=== PATIENT | female | born 1950 | race Caucasian/White ===

== ENCOUNTER 2022-06-21 11:55 | Emergency (ER) | payer MEDICARE, BC, SELFPAY ==
[2022-06-21 12:08] VITALS: BP 156/87; PULSE 72; RESP 22; TEMP 36; O2SAT 98; BMI 31.0
--- NOTE | 2022-06-21 12:35 | CRLHL7_ITS ---
For Patients: As a result of the Century Cures Act, medical imaging exams and procedure reports are released immediately into your electronic medical record. You may view this report before your referring provider. If you have questions, please contact your health care provider. Indication : Dyspnea Technique: Single-view study June 21, 2022 1:07 p.m. Comparison: July 01, 2020 Findings: Normal cardiac and mediastinal contour. Lungs show no focal consolidation, infiltrate or mass. No pleural effusion or pneumothorax. No acute osseous finding Impression: No evidence of active pulmonary disease Dictated by Michael Reyes MD @ 06/21/2022 1:20:08 PM (Electronically Signed)
--- NOTE | 2022-06-21 12:37 | ED.WEAKNESS ---
HPI - Weakness General Chief complaint: Weakness Stated complaint: weakness/chest pressure Time Seen by Provider: 06/21/22 12:12 History of Present Illness HPI Narrative: 72-year-old woman presenting with spouse to the emergency department with concern of weakness. She has also been having sense of chest pressure. Underlying history of COPD and sleep apnea. She apparently is not receiving treatment for COPD she says but does intermittently use her CPAP. She has not had any fever. Was recently diagnosed with a urinary tract infection, I believe 2 days ago, and was initiated on nitrofurantoin. She notes that for a couple of hours after taking this medication she feels more weak a sense of chest pressure a little lightheaded. She also has been having low sharp pains in her right upper chest but this is not necessarily unusual; chronic. She does have leg pain bilaterally which she attributes to back problems but a little bit more swelling typically in her left leg due to rodding. Is not describing any rash. Maybe mildly short of breath when up and about, better when she lays down. Mild sense of nausea, again may be associated with medication she thinks. She just noticed that she has a little bit of mid right abdominal discomfort. She is not constipated and no diarrhea noted. She no longer has any dysuria urgency or frequency. She does endorse ?high anxiety? as I observe her intermittently with mildly labored breathing when lying in the bed. Related Data Allergies Allergy/AdvReac Type Severity Reaction Status Date / Time Sulfa (Sulfonamide Allergy Verified 06/21/22 12:06 Antibiotics) Review of Systems Status of ROS: Reports: 10 or more systems reviewed and unremarkable except as noted in History and below [facility] Social History Smoking Status: Never smoker Do you use any of these nicotine containing products: None Second hand tobacco smoke exposure: No How often do you have a drink containing alcohol: monthly or less How many standard drinks containing alcohol do you have on a typical day: 1 or 2 How often do you have six or more drinks on one occasion: Never AUDIT-C Alcohol total score: 1 Non-prescribed substance use: denies use service: No Exam Narrative: Exam Narrative: Pleasant. NAD. Does appear mildly anxious. Intermittently mildly labored in her breathing. Cranial nerves 2-12 intact. Oropharynx moist Lungs are clear Cardiovascular was regular rate and rhythm. No murmur There is no pain to palpation over the chest though the right upper back, rhomboid area, is tender. Moving all extremities without difficulty. Well perfused peripherally. Mild dependent edema bilaterally. Negative Homans. Abdomen is soft overweight and very mildly tender in the right mid-abdomen. No masses appreciated. Const: Vital Signs, click to edit/add: Vital Signs - 24 hr 06/21/22 12:08 06/21/22 12:48 06/21/22 15:18 Temperature 96.8 F L Pulse Rate [Pulse Oximeter] 72 70 Respiratory Rate 22 18 Blood Pressure [Ri t Upper Arm] 156/87 H 149/77 H Pulse Oximetry 98 99 Oxygen Delivery Me thod Room Air Documenting provider has reviewed patient's vital signs: yes Course Vital Signs Vital signs: Initial Vital Signs Temperature 96.8 F L 06/21/22 12:08 Temperature Source Temporal Artery Scan 06/21/22 12:08 Pulse Rate 72 06/21/22 12:08 Pulse Rhythm 06/21/22 12:08 Respiratory Rate 22 06/21/22 12:08 Blood Pressure 156/87 H 06/21/22 12:08 Blood Pressure Mean 110 06/21/22 12:08 Pulse Oximetry 98 06/21/22 12:08 Oxygen Delivery Method 06/21/22 12:08 Vital Signs Temperature 96.8 F L 06/21/22 12:08 Pulse Rate 72 06/21/22 12:08 Respiratory Rate 22 06/21/22 12:08 Blood Pressure 156/87 H 06/21/22 12:08 Pulse Oximetry 98 06/21/22 12:08 Oxygen Delivery Method 06/21/22 12:08 Temperature 96.8 F L 06/21/22 12:08 Pulse Rate 70 06/21/22 15:18 Respiratory Rate 18 06/21/22 15:18 Blood Pressure 149/77 H 06/21/22 15:18 Pulse Oximetry 99 06/21/22 12:48 Oxygen Delivery Method 06/21/22 12:08 MDM - Weakness MDM Narrative Medical decision making narrative: Given timing and temporary nature of these primary symptoms of complaint, I do suspect may be more of a medication intolerance. She would like further evaluation ?just to be safe?. I do not think this is unreasonable. Urinalysis still with 1+ leukocyte esterase. D-dimer normal and COVID negative Intermittent twinges of upper right side chest discomfort I think do not seem to be cardiac; not even palpitations are described. I think could be related to chest wall pain particularly from the back/rhomboids I do think anxiety is exacerbating symptoms as well Medical Records Attestation: I reviewed the patient's medical records. Lab Data Attestation: I reviewed the patient's lab results. Labs: Lab Results 06/21/22 06/21/22 06/21/22 Range/Units 12:36 12:36 12:48 WBC 7.93 (4.50-11.00) K/uL RBC 4.99 (4.00-5.20) m/uL Hgb 15.2 (12.0-16.0) gm/dL Hct 44.5 (33.0-51.0) % MCV 89 (80-100) fL MCH 31 (26-34) pg MCHC 34 (32-36) gm/dL RDW Coeff of Dmitriy 11.8 (11.5-15.5) % Plt Count 243 (140-440) K/uL Neut % (Auto) 73.9 H (42.0-72.0) % Lymph % (Auto) 16.3 L (20-44) % [place] % (Auto) 6.9 (0.0-11.0) % Eos % (Auto) 2.3 (0.0-7.0) % Baso % (Auto) 0.5 (0.0-3.0) % Neut # (Auto) 5.90 (1.7-7.0) K/uL Lymph # (Auto) 1.30 (0.90-2.90) K/uL [place] # (Auto) 0.50 (0.00-0.90) K/UL Eos # (Auto) 0.18 (0.00-0.50) K/uL Baso # (Auto) 0.04 (0.00-0.30) K/uL Abs Immat Gran (auto) 0.01 (0.00-0.30) K/uL D-Dimer Quant (PE/DVT) (0.00-0.50) ug/ml VBG pH (7.32-7.43) VBG pCO2 (40-50) mmHG VBG pO2 (25-47) mmHG VBG HCO3 (21-28) mmol/L Sodium (135-149) mmol/L Potassium (3.6-5.1) mmol/L Chloride (96-114) mmol/L Carbon Dioxide (20-32) mmol/L BUN (7-30) mg/dL Creatinine (0.5-1.5) mg/dL Estimated Creat Clear Estimated GFR ml/min Glucose (60-115) mg/dL Calcium (8.4-10.6) mg/dL Total Bilirubin (0.1-1.5) mg/dL Direct Bilirubin (0.0-0.5) mg/dL AST (12-35) U/L ALT (4-35) U/L Alkaline Phosphatase (40-150) U/L Troponin I (0.01-0.04) ng/mL C-Reactive Protein (0.5-1.0) mg/dL Total Protein (6.0-8.3) g/dL Albumin (3.3-5.0) g/dL Urine Color Yellow (Yellow) Urine Appearance Clear (Clear) Urine pH 7.0 (5.0-8.5) Ur Specific [place] 1.010 (1.000-1.030) Urine Protein Negative (Negative) Urine Glucose (UA) Negative (Negative) Urine Ketones Negative (Negative) Urine Blood Negative (Negative) Urine Nitrite Negative (Negative) Urine Bilirubin Negative (Negative) Urine Urobilinogen 0.2 (0.2-1.0) Ur Leukocyte Esterase 1+ A (Negative) Urine RBC 0-2 (0-2) Urine WBC 0-2 (0-5) Ur Squamous Epith Cells Few (None-Few) Amorphous Sediment Few A (None) Urine Bacteria Few A (None) SARS-CoV-2 (PCR) Negative SARS-CoV-2 (Negative) 06/21/22 06/21/22 06/21/22 Range/Units 12:48 12:48 12:48 WBC (4.50-11.00) K/uL RBC (4.00-5.20) m/uL Hgb (12.0-16.0) gm/dL Hct (33.0-51.0) % MCV (80-100) fL MCH (26-34) pg MCHC (32-36) gm/dL RDW Coeff of Dmitriy (11.5-15.5) % Plt Count (140-440) K/uL Neut % (Auto) (42.0-72.0) % Lymph % (Auto) (20-44) % [place] % (Auto) (0.0-11.0) % Eos % (Auto) (0.0-7.0) % Baso % (Auto) (0.0-3.0) % Neut # (Auto) (1.7-7.0) K/uL Lymph # (Auto) (0.90-2.90) K/uL [place] # (Auto) (0.00-0.90) K/UL Eos # (Auto) (0.00-0.50) K/uL Baso # (Auto) (0.00-0.30) K/uL Abs Immat Gran (auto) (0.00-0.30) K/uL D-Dimer Quant (PE/DVT) 0.42 (0.00-0.50) ug/ml VBG pH (7.32-7.43) VBG pCO2 (40-50) mmHG VBG pO2 (25-47) mmHG VBG HCO3 (21-28) mmol/L Sodium 139 (135-149) mmol/L Potassium 3.9 (3.6-5.1) mmol/L Chloride 109 (96-114) mmol/L Carbon Dioxide 20 (20-32) mmol/L BUN 21 (7-30) mg/dL Creatinine 0.6 (0.5-1.5) mg/dL Estimated Creat Clear 43.30 Estimated GFR 97 ml/min Glucose 96 (60-115) mg/dL Calcium 9.3 (8.4-10.6) mg/dL Total Bilirubin 0.6 (0.1-1.5) mg/dL Direct Bilirubin 0.4 (0.0-0.5) mg/dL AST 23 (12-35) U/L ALT 17 (4-35) U/L Alkaline Phosphatase 95 (40-150) U/L Troponin I < 0.01 L (0.01-0.04) ng/mL C-Reactive Protein < 0.5 L (0.5-1.0) mg/dL Total Protein 6.4 (6.0-8.3) g/dL Albumin 4.3 (3.3-5.0) g/dL Urine Color (Yellow) Urine Appearance (Clear) Urine pH (5.0-8.5) Ur Specific [place] (1.000-1.030) Urine Protein (Negative) Urine Glucose (UA) (Negative) Urine Ketones (Negative) Urine Blood (Negative) Urine Nitrite (Negative) Urine Bilirubin (Negative) Urine Urobilinogen (0.2-1.0) Ur Leukocyte Esterase (Negative) Urine RBC (0-2) Urine WBC (0-5) Ur Squamous Epith Cells (None-Few) Amorphous Sediment (None) Urine Bacteria (None) SARS-CoV-2 (PCR) (Negative) 06/21/22 Range/Units 12:48 WBC (4.50-11.00) K/uL RBC (4.00-5.20) m/uL Hgb (12.0-16.0) gm/dL Hct (33.0-51.0) % MCV (80-100) fL MCH (26-34) pg MCHC (32-36) gm/dL RDW Coeff of Dmitriy (11.5-15.5) % Plt Count (140-440) K/uL Neut % (Auto) (42.0-72.0) % Lymph % (Auto) (20-44) % [place] % (Auto) (0.0-11.0) % Eos % (Auto) (0.0-7.0) % Baso % (Auto) (0.0-3.0) % Neut # (Auto) (1.7-7.0) K/uL Lymph # (Auto) (0.90-2.90) K/uL [place] # (Auto) (0.00-0.90) K/UL Eos # (Auto) (0.00-0.50) K/uL Baso # (Auto) (0.00-0.30) K/uL Abs Immat Gran (auto) (0.00-0.30) K/uL D-Dimer Quant (PE/DVT) (0.00-0.50) ug/ml VBG pH 7.400 (7.32-7.43) VBG pCO2 39 L (40-50) mmHG VBG pO2 60.9 H (25-47) mmHG VBG HCO3 24 (21-28) mmol/L Sodium (135-149) mmol/L Potassium (3.6-5.1) mmol/L Chloride (96-114) mmol/L Carbon Dioxide (20-32) mmol/L BUN (7-30) mg/dL Creatinine (0.5-1.5) mg/dL Estimated Creat Clear Estimated GFR ml/min Glucose (60-115) mg/dL Calcium (8.4-10.6) mg/dL Total Bilirubin (0.1-1.5) mg/dL Direct Bilirubin (0.0-0.5) mg/dL AST (12-35) U/L ALT (4-35) U/L Alkaline Phosphatase (40-150) U/L Troponin I (0.01-0.04) ng/mL C-Reactive Protein (0.5-1.0) mg/dL Total Protein (6.0-8.3) g/dL Albumin (3.3-5.0) g/dL Urine Color (Yellow) Urine Appearance (Clear) Urine pH (5.0-8.5) Ur Specific [place] (1.000-1.030) Urine Protein (Negative) Urine Glucose (UA) (Negative) Urine Ketones (Negative) Urine Blood (Negative) Urine Nitrite (Negative) Urine Bilirubin (Negative) Urine Urobilinogen (0.2-1.0) Ur Leukocyte Esterase (Negative) Urine RBC (0-2) Urine WBC (0-5) Ur Squamous Epith Cells (None-Few) Amorphous Sediment (None) Urine Bacteria (None) SARS-CoV-2 (PCR) (Negative) Discharge Plan Discharge Clinical Impression: Urinary tract infection, Antibiotic drug intolerance, Rhomboid muscle pain Patient Disposition: Home w/ Parent or Adult Condition: Stable Additional Instructions: Yes. Do focus on hydration as discussed. Try to do these exercises for your upper back going through them once or twice daily. They might be helpful if you can do them for a longer period of time. Return for persistent chest pain particularly that accompanied with shortness of breath or nausea. Return also if your lightheadedness is getting more persistent. Urine culture result is still pending. At this point stop the Nitrofurantoin and finish with 4-5 more days of cephalexin. Follow Up/Referrals: Raleigh Moya MD [Primary Care Provider] - Stand Alone Forms: [employer] Info Instructions
[2022-06-21 12:48] VITALS: O2SAT 99
[2022-06-21 12:58] LABS: Appearance Urine Clear (Clear); Bilirubin Urine Negative (Negative); Blood Urine Negative (Negative); Color Urine Yellow (Yellow); Glucose Urine Negative (Negative); Ketones Urine Negative (Negative); Leukocyte Esterase Urine 1+ (Negative); Nitrite Urine Negative (Negative); Protein Urine Negative (Negative); Urobilinogen Urine 0.2 (0.2-1.0)
[2022-06-21 13:00] LABS: Basophils Absolute Auto 0.04 K/uL (0.00-0.30); Basophils Percent Auto 0.5 % (0.0-3.0); Eosinophils Absolute Auto 0.18 K/uL (0.00-0.50); Eosinophils Percent Auto 2.3 % (0.0-7.0); Hematocrit 44.5 % (33.0-51.0); Hemoglobin* 15.2 gm/dL (12.0-16.0); Immature Granulocytes Abs Auto 0.01 K/uL (0.00-0.30); Lymphocytes Percent Auto 16.3 % (20-44); Mean Corpuscular HGB Conc 34 gm/dL (32-36); Mean Corpuscular Hemoglobin 31 pg (26-34); Mean Corpuscular Volume 89 fL (80-100); Monocytes Percent Auto 6.9 % (0.0-11.0); Neutrophils Percent Auto 73.9 % (42.0-72.0); Platelet Count* 243 K/uL (140-440); RDW Coefficient of Variation % 11.8 % (11.5-15.5); Red Blood Count 4.99 m/uL (4.00-5.20); White Blood Count* 7.93 K/uL (4.50-11.00)
[2022-06-21 13:03] LABS: Slide Review Reflex No
[2022-06-21 13:30] LABS: D Dimer Quantitative* 0.42 ug/ml (0.00-0.50)
[2022-06-21 13:31] LABS: Chloride* 109 mmol/L (96-114); Potassium* 3.9 mmol/L (3.6-5.1); Sodium* 139 mmol/L (135-149)
[2022-06-21 13:32] LABS: Albumin* 4.3 g/dL (3.3-5.0)
[2022-06-21 13:33] LABS: Creatinine* 0.6 mg/dL (0.5-1.5); Estimated Glomerular Filt Rate 97 ml/min
[2022-06-21 13:34] LABS: Blood Urea Nitrogen* 21 mg/dL (7-30); Calcium* 9.3 mg/dL (8.4-10.6); Carbon Dioxide* 20 mmol/L (20-32); Glucose* 96 mg/dL (60-115)
[2022-06-21 13:35] LABS: Alanine Aminotransferase* 17 U/L (4-35); Alkaline Phosphatase* 95 U/L (40-150); Aspartate Amino Transferase* 23 U/L (12-35); Bilirubin Direct* 0.4 mg/dL (0.0-0.5); Bilirubin Total* 0.6 mg/dL (0.1-1.5); Total Protein* 6.4 g/dL (6.0-8.3)
[2022-06-21 13:38] LABS: C Reactive Protein* < 0.5 mg/dL (0.5-1.0)
[2022-06-21 13:42] LABS: HCO3 VBG 24 mmol/L (21-28); PCO2 VBG 39 mmHG (40-50); PO2 VBG 60.9 mmHG (25-47)
[2022-06-21 13:50] LABS: Troponin I* < 0.01 ng/mL (0.01-0.04)
[2022-06-21 14:12] LABS: RBC Urine 0-2 (0-2); WBC Urine 0-2 (0-5)
[2022-06-21 14:13] LABS: Amorphous Sediment Urine Few; Bacteria Urine Few; Squamous Epithelial Cell Urine Few (None-Few)
[2022-06-21 14:44] LABS: SARS PCR* Negative SARS-CoV-2 (Negative)
[2022-06-21 15:18] VITALS: BP 149/77; PULSE 70; RESP 18
== END 2022-06-21 15:18 | disposition home or self-care (01) ==
PROVIDERS: Emergency Provider Family Medicine; PCP Family Medicine
DX: N39.0 Urinary tract infection, site not specified (principal); S46.911A Strain of unspecified muscle, fascia and tendon at shoulder and upper arm level, right arm, initial encounter; Z88.1 Allergy status to other antibiotic agents
CPT/HCPCS: 36415; 71045; 80048; 80076; 81001; 82803; 84484; 85025; 85379; 86140; 87086; 87635; 94761; 96374; 96375; 99284; J2060; J2405; J7030

== ENCOUNTER 2022-06-21 20:50 | Emergency (ER) | payer MEDICARE, BC, SELFPAY ==
[2022-06-21 21:29] VITALS: BP 150/87; PULSE 76; TEMP 36.1; O2SAT 99
--- NOTE | 2022-06-21 21:49 | ED_ITS ---
HPI - Nausea/Vomiting/Diarrhea General Chief complaint: Nausea/Vomiting Stated complaint: Trouble breathing, vomiting and nausea Time Seen by Provider: 06/21/22 21:04 History of Present Illness HPI Narrative: 72-year-old woman presented returning to the emergency department after I saw h er earlier in the day. About 3 hours after taking a pill of Keflex for presumed urinary tract infection there she had initiated treatment on nitrofurantoin 2 days ago, started vomiting and having diarrhea. describes her hyperventilating/breathing heavily, bent over the toilet. Coming out both ends. He was wondering what ?what the is hell going on?. Sounded like a pretty dramatic seen. Around this time I believe Ms. Villegas callled to the emergency department. I spoke to her at this time. She was concerned about dehydration. Seemed very upset I ask her if she was having some cramping in tingling and she responds by saying her arms were hurting and everything is hurting. She is not describing significant abdominal pain. No fever. She does have chronic back pain in that apparently has been exacerbated as well. Related Data Allergies Allergy/AdvReac Type Severity Reaction Status Date / Time Sulfa (Sulfonamide Allergy Verified 06/21/22 12:06 Antibiotics) Cephalexin Allergy Unknown Uncoded 06/21/22 21:41 Review of Systems Status of ROS: Reports: 10 or more systems reviewed and unremarkable except as noted in History and below [facility] Medical History Anxiety and depression Surgical History History of back surgery History of colonoscopy History of hysterectomy History of lumbar laminectomy History of reduction mammoplasty Status post bilateral breast reduction Status post hysterectomy Social History Smoking Status: Never smoker Do you use any of these nicotine containing products: None Second hand tobacco smoke exposure: No How often do you have a drink containing alcohol: monthly or less How many standard drinks containing alcohol do you have on a typical day: 1 or 2 How often do you have six or more drinks on one occasion: Never AUDIT-C Alcohol total score: 1 Non-prescribed substance use: denies use service: No Exam Narrative: Exam Narrative: Breathless, anxious, sticky mouth Const: Vital Signs, click to edit/add: Vital Signs - 24 hr 06/21/22 21:29 06/21/22 23:30 06/21/22 23:00 Temperature 97.0 F L Pulse Rate [Right Pulse Oximeter] 76 78 82 Respiratory Rate 16 16 Blood Pressure [Le ft Upper Arm] 150/87 H 141/81 H 138/73 Pulse Oximetry 99 96 97 Oxygen Delivery Me thod Room Air Room Air Room Air 06/21/22 22:30 06/21/22 22:00 06/22/22 00:22 Temperature Pulse Rate [Right Pulse Oximeter] 86 78 98 Respiratory Rate 16 16 18 Blood Pressure [Le ft Upper Arm] 146/78 H 132/77 142/82 H Pulse Oximetry 98 97 Oxygen Delivery Me thod Room Air Room Air Documenting provider has reviewed patient's vital signs: yes Course Course Hospital Course: Established IV. Given IV fluids. Lorazepam and Zofran. Reevaluation(s) Reevaluation #1: On reassessment is much more calm and comfortable. Relaxed frankly. Vital Signs Vital signs: Initial Vital Signs Temperature 97.0 F L 06/21/22 21:29 Temperature Source Temporal Artery Scan 06/21/22 21:29 Pulse Rate 76 06/21/22 21:29 Pulse Rhythm 06/21/22 21:29 Blood Pressure 150/87 H 06/21/22 21:29 Blood Pressure Mean 108 06/21/22 21:29 Blood Pressure Position Semi-Fowlers 06/21/22 21:29 Pulse Oximetry 99 06/21/22 21:29 Oxygen Delivery Method 06/21/22 21:29 Vital Signs Temperature 97.0 F L 06/21/22 21:29 Pulse Rate 76 06/21/22 21:29 Blood Pressure 150/87 H 06/21/22 21:29 Pulse Oximetry 99 06/21/22 21:29 Oxygen Delivery Method 06/21/22 21:29 Temperature 97.0 F L 06/21/22 21:29 Pulse Rate 98 06/22/22 00:22 Respiratory Rate 18 06/22/22 00:22 Blood Pressure 142/82 H 06/22/22 00:22 Pulse Oximetry 96 06/21/22 23:30 Oxygen Delivery Method 06/21/22 23:30 MDM - Nausea/Vomiting/Diarrhea MDM Narrative Medical decision making narrative: Certainly possible is intolerant of cephalexin as well. Was negative for COVID earlier today. Did not repeat labs. I do think that a panic attack complicated this situation. Medical Records Attestation: I reviewed the patient's medical records. Discharge Plan Discharge Clinical Impression: Vomiting and diarrhea, Panic attack, Dehydration Patient Disposition: Home w/ Parent or Adult Condition: Improved Additional Instructions: Gentle advance of diet. Focus on hydration. Diarrhea might be helped with loperamide if necessary. Maybe it is better at this point just to not take any antibiotic. Urine culture results are still pending. If you start to have more symptoms in this regard I would follow up and get re-evaluated. Michelle from [facility]. Follow Up/Referrals: Raleigh Moya MD [Primary Care Provider] - Stand Alone Forms: [employer] Info Instructions
[2022-06-21 22:00] VITALS: BP 132/77; PULSE 78; RESP 16; O2SAT 97
[2022-06-21] MEDS: ONDANSETRON 2 MG/ML inj 4 MG IVP (22:13)
[2022-06-21] MEDS: LORazepam 2 MG/ML inj 0.5 MG IVP (22:13)
[2022-06-21] MEDS: 0.9 % SODIUM CHLORIDE 1000 ml 1,000 ML IV (22:14)
[2022-06-21 22:30] VITALS: BP 146/78; PULSE 86; RESP 16; O2SAT 98
[2022-06-21 23:00] VITALS: BP 138/73; PULSE 82; RESP 16; O2SAT 97
[2022-06-21 23:30] VITALS: BP 141/81; PULSE 78; RESP 16; O2SAT 96
[2022-06-22 00:22] VITALS: BP 142/82; PULSE 98; RESP 18
== END 2022-06-22 00:25 | disposition home or self-care (01) ==
PROVIDERS: Emergency Provider Family Medicine; PCP Family Medicine
DX: R11.10 Vomiting, unspecified (principal); R19.7 Diarrhea, unspecified; F43.0 Acute stress reaction; E86.0 Dehydration
CPT/HCPCS: 99283; 99284; J2060; J2405; J7030

== ENCOUNTER 2022-06-25 12:38 | Outpatient (CLI) | payer MEDICARE, BC, SELFPAY | END 2022-06-25 12:39 | disposition home or self-care (01) | LOC: LONREF 12:38 | PROVIDERS: PCP Family Medicine; Visit Provider Family Medicine | DX: N39.0 Urinary tract infection, site not specified (principal) | CPT/HCPCS: 87086; 87186 ==

== ENCOUNTER 2022-08-17 08:06 | Outpatient (CLI) | payer MEDICARE, BC, SELFPAY ==
--- NOTE | 2022-08-17 08:15 | CRLHL7_ITS ---
For Patients: As a result of the Century Cures Act, medical imaging exams and procedure reports are released immediately into your electronic medical record. You may view this report before your referring provider. If you have questions, please contact your health care provider. INDICATION: Vertigo and vision changes. TECHNIQUE: Multiplanar multisequence MR imaging acquired through the brain and internal auditory canals prior to and following intravenous contrast. COMPARISON: None. FINDINGS: Prominence of the ventricles and sulci compatible with minimal diffuse cerebral volume loss. No mass effect or midline shift. Scattered T2 FLAIR hyperintensities in the supratentorial white matter and gustavo, typical for mild chronic microvascular ischemic changes. 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 No intracranial hemorrhage or pathologic extra-axial fluid collection. No diffusion restriction to suggest acute infarction. No pathologic intracranial enhancement. No mass or pathologic enhancement within the internal auditory canals or cerebellopontine angles. No concerning signal abnormalities in the inner ear structures. No vascular loop within the internal auditory canals. The major arterial flow voids of the skullbase are preserved. The globes are symmetric. Small left maxillary sinus retention cyst. Minimal left mastoid fluid. IMPRESSION: 1. No acute intracranial abnormality. 2. No mass or pathologic enhancement within the internal auditory canals or cerebellopontine angles. 3. Mild chronic microvascular ischemic changes. Dictated by Lázaro Lopez MD @ 08/17/2022 1:18:08 PM (Electronically Signed)
== END 2022-08-17 08:07 | disposition home or self-care (01) ==
PROVIDERS: PCP Family Medicine; Visit Provider Family Medicine
DX: R42 Dizziness and giddiness (principal); H53.9 Unspecified visual disturbance; I67.82 Cerebral ischemia
CPT/HCPCS: 70553; A9575

== ENCOUNTER 2022-11-03 09:00 | Outpatient (CLI) | payer MEDICARE, BC, SELFPAY ==
[2022-11-03 14:53] LABS: Chloride* 108 mmol/L (96-114); Potassium* 4.1 mmol/L (3.6-5.1); Sodium* 139 mmol/L (135-149)
[2022-11-03 14:55] LABS: Creatinine* 0.6 mg/dL (0.5-1.5); Estimated Glomerular Filt Rate 97 ml/min
[2022-11-03 14:56] LABS: Blood Urea Nitrogen* 19 mg/dL (7-30); Calcium* 9.3 mg/dL (8.4-10.6); Carbon Dioxide* 25 mmol/L (20-32); Glucose* 95 mg/dL (60-115)
== END 2022-11-03 09:01 | disposition home or self-care (01) ==
LOC: LONREF 09:01
PROVIDERS: PCP Family Medicine; Visit Provider Family Medicine
DX: Z01.818 Encounter for other preprocedural examination (principal)
CPT/HCPCS: 80048

== ENCOUNTER 2022-11-18 07:12 | Outpatient (CLI) | payer MEDICARE, BC, SELFPAY ==
--- NOTE | 2022-11-18 09:20 | W.ANESCHARGE ---
Anesthesia Charges Start Date/Time Anesthesia Start Date: 11/18/22 Anesthesia Start Time: 07:58 Stop Date/Time Anesthesia Stop Date: 11/18/22 Anesthesia Stop Time: 09:15 Summary Extremes of Age - Over 70 or under 1: MDA
--- NOTE | 2022-11-18 09:34 | W.ANESCHARGE ---
Anesthesia Charges Start Date/Time Anesthesia Start Date: 11/18/22 Anesthesia Start Time: 07:58 Stop Date/Time Anesthesia Stop Date: 11/18/22 Anesthesia Stop Time: 09:15 Summary Extremes of Age - Over 70 or under 1: [employer]
== END 2022-11-18 07:13 | disposition home or self-care (01) ==
LOC: OP CLINIC 07:12
PROVIDERS: PCP Family Medicine; Visit Provider Surgery
DX: K63.5 Polyp of colon (principal); K64.8 Other hemorrhoids; K57.30 Diverticulosis of large intestine without perforation or abscess without bleeding; Z80.0 Family history of malignant neoplasm of digestive organs
CPT/HCPCS: 00811; 45381; 45385; 88305; 99100; J2704

== ENCOUNTER 2023-07-04 13:55 | Outpatient (CLI) | payer MEDICARE, BC, SELFPAY | END 2023-07-04 13:56 | disposition home or self-care (01) | LOC: NFLDREF 07-06 13:52 | PROVIDERS: PCP Family Medicine; Referring Provider Family Medicine; Visit Provider Family Medicine | DX: N39.0 Urinary tract infection, site not specified (principal); N95.1 Menopausal and female climacteric states; N30.01 Acute cystitis with hematuria; N89.8 Other specified noninflammatory disorders of vagina | CPT/HCPCS: 87086; 87186 ==

== ENCOUNTER 2023-08-22 06:18 | Outpatient (CLI) | payer MEDICARE, BC, SELFPAY ==
--- OUTSIDE RECORDS SUMMARY | 2023-08-22 06:21 | XMS_ITS | Continuity of Care Document ---
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 [address] [facility] [facility] [address], [place], [place], [id number], [place]. tel:[phone] Referring Provider: Arlyn Lundberg, [address] [place], [address]. tel:[phone] Family History Family Member Type Diagnosis Age At Onset No Information Payers Payer name Insurance type Covered alliance party ID Authoriza ticlement(s) [employer] Of [facility] [id number] Social History Type Description Quantity Date Captured Comments Sex Female Smoking Status No Information Chief Complaint And Reason For Visit No Information Reason For Referral Reason For Referral No Information History Of Present Illness Encounter Date Complaint History Of Prese nt Illness No Information Functional Status Date Functional Assessmen t No Information Instructions Date Instruction Additional Infor mation No Information Assessments Type Assessment Date No Information Patient Care Teams Name Effective Dates (start - stop) Status Members No Information
--- NOTE | 2023-08-22 08:17 | W.ANESCHARGE ---
Anesthesia Charges Start Date/Time Anesthesia Start Date: 08/22/23 Anesthesia Start Time: 07:30 Stop Date/Time Anesthesia Stop Date: 08/22/23 Anesthesia Stop Time: 08:15
--- NOTE | 2023-08-22 09:19 | W.ANESCHARGE ---
Anesthesia Charges Start Date/Time Anesthesia Start Date: 08/22/23 Anesthesia Start Time: 07:30 Stop Date/Time Anesthesia Stop Date: 08/22/23 Anesthesia Stop Time: 08:15 Summary Extremes of Age - Over 70 or under 1: MDA
== END 2023-08-22 06:19 | disposition home or self-care (01) ==
LOC: OP CLINIC 06:19
PROVIDERS: PCP Family Medicine; Visit Provider Surgery
DX: K63.5 Polyp of colon (principal); K62.1 Rectal polyp; K57.30 Diverticulosis of large intestine without perforation or abscess without bleeding; Z86.010 Personal history of colon polyps; Z09 Encounter for follow-up examination after completed treatment for conditions other than malignant neoplasm
CPT/HCPCS: 00811; 45380; 88305; 99100; J2704

== ENCOUNTER 2024-03-09 14:42 | Outpatient (CLI) | payer MEDICARE, BC, SELFPAY ==
--- OUTSIDE RECORDS SUMMARY | 2024-03-09 14:45 | XMS_ITS | Clinical Summary ---
Author Organization [employer] [facility] Address [place], [place] [address] Care Team Providers Care Typing Checker Name Role Phone Annemarie Locke MD Primary Care Provider Álvaro sweet Allergies Active Allergy Reactions Criticality Noted Date Comments Tolterodine Other - Describe In Comment Field 05/01/2015 Difficulty in swallowing due to dryness. Sx resolved when medication stopped Medications Medication Sig Dispensed Refills Start Date End Date Status gabapentin (NEURONTIN) 100 mg capsuleIndications:DD D (degenerative disc disease), lumbar,Low back pain radiating to right leg Take 1 tab in the morning and 3 tabs(300mg) at night. 120 capsule 3 08/22/2015 Active diltiazem CD (CARTIA XT) 180 mg extended release 24 hr capsuleIndications:HT N (hypertension) Take 1 capsule by mouth once daily. 90 capsule 3 08/22/2015 Active citalopram (CELEXA) 40 mg tabletIndications:Anx iety Take 1 tablet by mouth once daily. 90 tablet 3 08/22/2015 Active rizatriptan (MAXALT) 10 mg tabletIndications:Hx of migraine headaches Take 1 tablet by mouth every 2 hours if needed for Migraine. Max dose: 30mg per 24 hrs. Will call for refills 9 tablet 3 08/22/2015 Active trimethoprim-sulfamet hoxazole, 160-800 mg, (BACTRIM DS, SEPTRA DS) tabletIndications:Rec urrent UTI (urinary tract infection) Take 1 tablet by mouth 2 times daily. 20 tablet 0 10/02/2015 Active tolterodine (DETROL) 2 mg tabletIndications:Urg e incontinence of urine Take 0.5 tablets by mouth 2 times daily. 90 tablet 2 12/15/2015 Active hydroCHLOROthiazide (HCTZ) 25 mg tabletIndications:HTN (hypertension) TAKE 1/2 TABLET BY MOUTH ONCE DAILY. 15 tablet 09/08/2016 Active naproxen (NAPROSYN) 500 mg tabletIndications:Roque ateral hip pain TAKE ONE (1) TABLET BY MOUTH TWICE DAILY WITH A MEAL 180 tablet 10/27/2016 Active Active Problems Problem Noted Date Diagnosed Date Sensorineural hearing loss, bilateral 09/20/2014 DDD (degenerative disc disease), lumbar 08/20/20 14 Overview: Lumbar surgery 2011, disc ~ May 2015:L4-L5 TF epidural steroid injection by Dr. Ricks. Anxiety 08/20/2014 Arthritis 08/20/2014 Overview: Left hip, has had corticosteroid injection 04/15 Left leg pain 08/20/2014 Overview: Hx fx, surgical repair 2005 Colon polyps 08/20/2014 Overview: Last colonoscopy 2010 Urge incontinence of urine 08/20/2014 Vertigo 08/20/2014 Hx of migraine headaches 08/20/2014 Overview: Better over past few years HTN (hypertension) 08/20/2014 Immunizations Name Administration Dates Next Due Tdap 02/12/2014 Family History Medical History Relation Name Comments Cancer-colon Father Cancer Mother gall bladder Hypertension Mother Hypertension Sister 1 two Diabetes Sister 2 one Cancer-breast No Family History Relation Name Status Comments Father Mother Sister 1 Sister 2 Social History Tobacco Use Types Packs/Day Years Used Date Smoking Tobacco: Never Smokeless Tobacco: Never Tobacco Cessation:Counseling Given: Yes Alcohol Use Standard Drinks/Week Comments Yes 0 (1 standard drink = 0.6 oz pur e alcohol) once couple months Sex and Gender Information Value Date Recorded Sex Assigned at Not on file Gender Identity Not on file Sexual Orientation Not on file Obstetrics History Para Term AB IAB SAB Ectopic Multiple Livin g Live Births 5 5 5 5 5 Date Outcome GA Total Labor Labor/2nd/3rd Weight Sex Delivery Anes PTL Chioma A1 A5 Name Cl in Term Rosa Isela ng Term Rosa Isela ng Term Rosa Isela ng Term Rosa Isela ng Term Rosa Isela ng Last Filed Vital Signs Vital Sign Reading Time Taken Comments Blood Pressure 123/72 10/02/2015 8:34 AM TOUR LEADER Pulse 81 10/02/2015 8:34 AM TOUR LEADER Temperature 36.8 ??C (98.2 ??F) 08/22/2015 8:11 AM CS T Respiratory Rate - - Oxygen Saturation 95% 10/02/2015 8:34 AM TOUR LEADER Inhaled Oxygen Concentration - - Weight 82.6 kg (182 lb 3.2 oz) 10/02/2015 8:34 A M TOUR LEADER Height 165 cm (5' 4.96) 10/02/2015 8:34 AM TOUR LEADER Body Mass Index 30.36 10/02/2015 8:34 AM TOUR LEADER Plan of Treatment Health Maintenance Due Date Last Done Comments Depression screening for age 12+ 1964 BMI (ht and wt on same day) for age 18+ 1970 Zoster (shingles) series for age 50+ (1 of 2) 2002 Mammogram for age 45-75 08/20/2015 08/20/2014, 05/14 Fecal testing non-DNA (FIT,F OBT,iFOBT) for age 45-75 05/07/2017 05/07/2016, 05/15/2015 DEXA/DXA scan for age 65+ 2017 09/17/2014 Pneumococcal series for age 65+ (1 of 1 - PCV) 2017 Lipids for age 45-75 08/22/2020 08/22/2015, 10/18/19 08 COVID-19 vaccine series (1 - 2022- season) 2023 Tetanus booster 02/13/2024 02/12/2014 Influenza for age 65+ 06/03/2024 Tdap Completed 02/12/2014 Hepatitis C screening for age 18-79 Completed 08/22 Procedures Procedure Name Priority Date/Time Associated Diagnosis Comments OCCULT BLOOD IFOBT STOOL Routine 05/07/2016 3:30 PM CDT Screening for colorectal cancer ANTI HCV Routine 08/22/2015 9:13 AM TOUR LEADER Need for hepatitis C screening test LIPID PANEL W REFLEX MEASURED LDL Routine 08/22/2015 9:13 AM TOUR LEADER Screening, lipid XR DXA BONE DENSITY 2 SITES AXIAL Routine 09/17/2014 1:59 PM TOUR LEADER Screening for osteoporosis XR MAMMO BILAT SCREEN FFDM (IA) Routine 08/20/2014 4:19 PM TOUR LEADER Other screening mammogram from Last 3 Months or Most Recently Relevant to Health Maintenance Results * OCCULT BLOOD IFOBT STOOL (05/07/2016 3:30 PM CDT) STOOL BLOOD ,IFOBT Negative Negative 05/07/2016 4:10 PM CDT [facility] Stool STOOL SPECIMEN / Unknown Non-Blood / Unknown 05/07/2016 3:30 PM CDT 05/07/2016 3:30 PM CDT Juanita Back NP LABORATOR Y Performing Organization Address City/State/[facility] Co de Phone Number [facility] [address] [place] [address], [place] [phone] * (ABNORMAL) LIPID PANEL W REFLEX MEASURED LDL (08/22/2015 9:13 AM TOUR LEADER) CHOLESTEROL,TOTAL 230(H) 100 - 199 mg/dL 08/22/2015 9:39 AM TOUR LEADER [facility] TRIGLYCERIDES 260(H) <150 mg/dL 08/22/2015 9:39 AM TOUR LEADER [facility] HDL CHOLESTEROL 46 >40 mg/dL 08/22/2015 9:39 AM TOUR LEADER [facility] NON-HDL CHOLESTEROL 184(H) <145 mg/dl 08/22/2015 9:39 AM TOUR LEADER [facility] CHOL/HDL RATIO 5.00(H) <4.50 08/22/2015 9:39 AM TOUR LEADER [facility] LDL CHOLESTEROL 132(H) <=130 mg/dL 08/22/2015 9:39 AM TOUR LEADER [facility] PATIENT STATUS FASTING 08/22/2015 9:39 AM TOUR LEADER [facility] Blood specimen (specimen) BLOOD SPECIMEN / Unknown Venipuncture / Unknown 08/22/2015 9:13 AM TOUR LEADER 08/22/2015 9:13 AM TOUR LEADER Juanita Back NP CHEMISTRY [facility] [address] [place] [address], [place] [phone] * ANTI HCV (08/22/2015 9:13 AM TOUR LEADER) HEPATITIS C ANTIBODY Non-Reacti ve Non-Reacti ve 08/22/2015 5:47 PM TOUR LEADER [facility] Blood specimen (specimen) BLOOD SPECIMEN / Unknown Venipuncture / Unknown 08/22/2015 9:13 AM TOUR LEADER 08/22/2015 9:13 AM TOUR LEADER Narrative [facility] - 08/22/2015 5:47 PM TOUR LEADER Antibodies to HCV not detected; does not exclude the possibility of exposure to HCV. Juanita Back NP SEND OUTS Performing Organization Address City/[facility]/ZIP Co de Phone Number [facility] [address] [place] [address], [place] * (ABNORMAL) XR DXA BONE DENSITY 2 SITES (09/17/2014 1:59 PM TOUR LEADER) Anatomical Region Laterality Modality Spine, HIPS, HIPL, HIPR Other Narrative 09/25/2014 10:57 AM TOUR LEADER Please see scanned document for results of this study. Procedure Note Angelia Hurtado PA - 09/25/2014 Please see scanned document for results of this study. Juanita Back NP DEXA * XR MAMMO BILAT SCREEN FFDM (08/20/2014 4:19 PM TOUR LEADER) Anatomical Region Laterality Modality BREASTS, Breast Left, Breast Right Bilateral Mammography Impressions 08/27/2014 12:37 PM TOUR LEADER ??There is no radiographic evidence for malignancy. ??Recommend annual mammograms. A lay language report of this examination will be provided to the patient. MAMMOGRAM ASSESSMENT: ??ACR 2 Benign Narrative 08/27/2014 12:37 PM TOUR LEADER XR MAMMO BILAT SCREEN FFDM [G0202.0] CLINICAL HISTORY: ??This is an asymptomatic 64 y.o. patient. INDICATION FOR EXAM: Mammogram Screening. TECHNIQUE: CC & MLO views were obtained. ??This digital study was evaluated with the assistance of Computer-Aided Detection. ?? COMPARISON FILMS: Yes 05/14/13 [facility] 02/16/13 [facility] FINDINGS: ??Mammographically, the breast tissue has scattered fibroglandular densities. ??No suspicious masses or microcalcifications. ?? Benign appearing calcifications within both breasts, Benign appearing asymmetry within left breast and Intramammary lymph node within left breast. Procedure Note Raleigh Fong, DO - 08/27/2014 XR MAMMO BILAT SCREEN FFDM [G0202.0] CLINICAL HISTORY: This is an asymptomatic 64 y.o. patient. INDICATION FOR EXAM: Mammogram Screening. TECHNIQUE: CC & MLO views were obtained. This digital study was evaluatedwith the assistance of Computer-Aided Detection. COMPARISON FILMS: Yes 05/14/13 [facility] 02/16/13 [facility] FINDINGS: Mammographically, the breast tissue has scatteredfibroglandular densities. No suspicious masses or microcalcifications.Benign appearing calcifications within both breasts, Benign appearingasymmetry within left breast and Intramammary lymph node within leftbreast. IMPRESSION: There is no radiographic evidence for malignancy. Recommendannual mammograms. A lay language report of this examination will be provided to the patient. MAMMOGRAM ASSESSMENT: ACR 2 Benign Juanita Back NP MAMMO from Last 3 Months or Most Recently Relevant to Health Maintenance Care Teams Typing Checker Relationship Specialty Start Date End Date Annemarie Locke MD PCP - General Family Practice 10/27/16
--- OUTSIDE RECORDS SUMMARY | 2024-03-09 14:45 | XMS_ITS | Referral Summary ---
Author Organization [place] Address [facility] [place] [address] Care Team Providers Care Laboratory Director Name Role Phone Anjum Moya MD Primary Care Provider [phone] Allergies Active Allergy Reactions Criticality Noted Date Comments Cephalexin Difficulty breathing 11/03/2020 Tolterodine 06/30/2015 Shortness of breath Medications Medication Sig Dispensed Refills Start Date End Date Status hydrochlorothiazide (HYDRODIURIL) 25 MG tablet Take 12.5 mg by mouth every morning (0.5 X 25 mg)(Patient taking differently than prescribed. RX states 25 mg daily.) Active traMADol (ULTRAM) 50 MG tablet Take 50 mg by mouth every 6 hours as needed for moderate to severe pain Active rizatriptan (MAXALT) 5 MG tablet Take 5 mg by mouth daily as needed for migraine Active diltiazem ER COATED BEADS (CARDIZEM CD/CARTIA XT) 180 MG 24 hr capsule Take 180 mg by mouth every morning Active Probiotic Product (PROBIOTIC-10 PO) Take 2 capsules by mouth every morning Active escitalopram (LEXAPRO) 20 MG tablet Take 20 mg by mouth every morning Active trospium (SANCTURA) 20 MG tablet Take 20 mg by mouth every morning Active cholestyramine (QUESTRAN) 4 GM/DOSE powder Take 1 g by mouth every morning (Patient taking differently than prescribed. RX states 2 grams daily.) Active acetaminophen (TYLENOL) 500 MG tablet Take 500-1,000 mg by mouth every 6 hours as needed for mild pain Active VITAMIN D PO Take 1 tablet by mouth every morning Active calcium carbonate (OS-JAKE) 500 MG tablet Take 1 tablet by mouth every morning Active multivitamin w/minerals (THERA-VIT-M) tablet Take 1 tablet by mouth every morning Active melatonin 5 MG tablet Take 5 mg by mouth nightly as needed for sleep Active oxyCODONE (ROXICODONE) 5 MG tabletIndications:Sp inal stenosis, lumbar region, with neurogenic claudication Take 1-2 tablets (5-10 mg) by mouth every 4 hours as needed 20 tablet 11/06/2020 Active Active Problems Problem Noted Date Diagnosed Date Spinal stenosis, lumbar serena on, with neurogenic claudication 11/04/2020 Social History Tobacco Use Types Packs/Day Years Used Date Smoking Tobacco: Never Smokeless Tobacco: Never Alcohol Use Standard Drinks/Week Comments Yes 0 (1 standard drink = 0.6 oz pur e alcohol) rare Adolescent Education Answer Date Record ed Getting School Help Needed Not on file 06/24 Sex and Gender Information Value Date Recorded Sex Assigned at Not on file Gender Identity Not on file Sexual Orientation Not on file Last Filed Vital Signs Vital Sign Reading Time Taken Comments Blood Pressure 124/64 06/19/2022 2:14 PM CDT Pulse 74 06/19/2022 2:14 PM CDT Temperature 37.1 ??C (98.8 ??F) 06/19/2022 2:14 PM CD T Respiratory Rate 16 11/06/2020 7:35 AM DEHYDRATOR Oxygen Saturation 98% 06/19/2022 2:14 PM CDT Inhaled Oxygen Concentration - - Weight 81.6 kg (180 lb) 06/19/2022 2:14 PM CDT Height 162.6 cm (5' 4) 11/04/2020 6:14 AM DEHYDRATOR Body Mass Index 30.9 11/04/2020 6:14 AM DEHYDRATOR Plan of Treatment Not on file Medical Devices Implanted Type Area Manager Dialysis Device Identifier Shelf Expiration Date Model / Serial / Lot Graft Bone Putty Dbx 10ml [id number] Implanted:Qty : 1 on 11/04/2020 by Isai Colon MD at [facility] Bone/Tis noemí/Biol ogic N/A: Spine Lumbar MUSCULOSKELETAL BOYER 04/14/2022 [id number] / [id number] / 6.5 X 45mm Screw Implanted:Qty : 4 on 11/04/2020 by Isai Colon MD at [facility] N/A: Spine Lumbar DAKSHA [id number] / / 41 07 2020 Closure Tops Implanted:Qty : 4 on 11/04/2020 by Isai Colon MD at [facility] N/A: Spine Lumbar DAKSHA [id number] / / 41 07 2020 40mm Rods Implanted:Qty : 2 on 11/04/2020 by Isai Colon MD at [facility] N/A: Spine Lumbar DAKSHA [id number]. [id number] / / 07 2020 Procedures Procedure Name Priority Date/Time Associated Diagnosis Comments GLUCOSE Routine 11/06/2020 7:00 AM DEHYDRATOR from Last 3 Months or Most Recently Relevant to Health Maintenance Results * Glucose (11/06/2020 7:00 AM DEHYDRATOR) Glucose 95 70 - 99 mg/dL 11/06/2020 7:25 AM DEHYDRATOR [facility] Blood specimen (specimen) 11/06/2020 7:00 AM DEHYDRATOR 11/06/2020 7:01 AM DEHYDRATOR Isai Colon MD LAB - BLOOD ORDERABL ES [facility] [address] [address], [facility] [phone] from Last 3 Months or Most Recently Relevant to Health Maintenance Advance Directives For more information, please contact: [phone] * Full Code (Latest Code Status on File) Date Activated Date Inactivated Comments 11/04/2020 1:35 PM 11/06/2020 4:41 PM All basic and advanced life-sustaining interventions are performed as appropriate Question Answer Comments Code status determined by: Discussion with alexe nt/ legal decision maker Care Teams Laboratory Director Relationship Specialty Start Date End Date Anjum Moya MD PCP - General Family Medicine 10/21/20
--- OUTSIDE RECORDS SUMMARY | 2024-03-09 14:45 | XMS_ITS | Clinical Summary ---
Author Organization [place] Address [facility] [place] [address] Care Team Providers Care [place] Cutting Machine Operator Name Role Phone Anjum Moya MD Primary Care Provider [phone] Allergies Active Allergy Reactions Criticality Noted Date [...] T Respiratory Rate 16 11/06/2020 7:35 AM WOOD PRESERVING PLANT LABORER Oxygen Saturation 98% 06/19/2022 2:14 PM CDT Inhaled Oxygen Concentration - - Weight 81.6 kg (180 lb) 06/19/2022 2:14 PM CDT Height 162.6 cm (5' 4) 11/04/2020 6:14 AM WOOD PRESERVING PLANT LABORER Body Mass Index 30.9 11/04/2020 6:14 AM WOOD PRESERVING PLANT LABORER Plan of Treatment Health Maintenance Due Date Last Done Comments ADVANCE CARE PLANNING 1952 ANNUAL REVIEW OF HM ORDERS 1952 CT COLONOGRAPHY 1952 DEXA 1952 FIT 1952 FLEX SIG 1952 MAMMO SCREENING 1952 sDNA (Cologuard) 1952 COLONOSCOPY 1962 COLORECTAL CANCER SCREENING 1962 HEPATITIS C SCREENING 1970 LIPID 1992 RSV VACCINE ( & 60+) (1 - 1-dose 60+ series) 2012 FALL RISK ASSESSMENT 2017 MEDICARE ANNUAL WELLNESS VISIT 2017 ZOSTER IMMUNIZATION (2 of 2) 02/11/2022 12/17/2021 COVID-19 Vaccine (5 - season) 2023 04/13/2022, 09/21/2021, 12/27/2020, Additional history exists PHQ-2 (once per calendar year) 2023 GLUCOSE 11/06/2023 11/06/2020, 11/05/2020 DTAP/TDAP/TD IMMUNIZATION (2 - Td or Tdap) 02/13/2024 02/12/2014 INFLUENZA VACCINE (Season Ended) 2024 Pneumococcal Vaccine: 65+ Years Completed 09/07/2019, 09/12/2018 HPV IMMUNIZATION Aged Out No longer e ligible based on patient's age to complete this topic IPV IMMUNIZATION Aged Out No longer e ligible based on patient's age to complete this topic MENINGITIS IMMUNIZATION Aged Out No l onger eligible based on patient's age to complete this topic RSV MONOCLONAL ANTIBODY Aged Out No l onger eligible based on patient's age to complete this topic Medical Devices Implanted Type Area Burnisher And Bumper Device Identifier Shelf Expiration Date Model / Serial / Lot Graft Bone Putty Dbx 10ml [id number] Implanted:Qty : 1 on 11/04/2020 by Isai Colon MD at [facility] Bone/Tis noemí/Biol ogic N/A: Spine Lumbar MUSCULOSKELETAL BOYER 04/14/2022 [id number] / [id number] / 6.5 X 45mm Screw Implanted:Qty : 4 on 11/04/2020 by Isai Colon MD at [facility] N/A: Spine Lumbar DAKSHA [id number] / / 41 07 2020 Closure Tops Implanted:Qty : 4 on 11/04/2020 by Isai Colon MD at [facility] N/A: Spine Lumbar DAKSHA [id number] / / 41 07 2020 40mm Rods Implanted:Qty : 2 on 11/04/2020 by Isai Colon MD at [facility] N/A: Spine Lumbar DAKSHA [id number]. [id number] / / 41 07 2020 Procedures Procedure Name Priority Date/Time Associated Diagnosis Comments GLUCOSE Routine 11/06/2020 7:00 AM WOOD PRESERVING PLANT LABORER from Last 3 Months or Most Recently Relevant to Health Maintenance Results * Glucose (11/06/2020 7:00 AM WOOD PRESERVING PLANT LABORER) Glucose 95 70 - 99 mg/dL 11/06/2020 7:25 AM WOOD PRESERVING PLANT LABORER [facility] Blood specimen (specimen) 11/06/2020 7:00 AM WOOD PRESERVING PLANT LABORER 11/06/2020 7:01 AM WOOD PRESERVING PLANT LABORER Isai Colon MD LAB - BLOOD ORDERABL ES [facility] [address] [address], [facility] [phone] from Last 3 Months or Most Recently Relevant to Health Maintenance Advance Directives For more information, please contact: [phone] * Full Code (Latest Code Status on File) Date Activated Date Inactivated Comments 11/04/2020 1:35 PM 11/06/2020 4:41 PM All basic and advanced life-sustaining interventions are performed as appropriate Question Answer Comments Code status determined by: Discussion with danielle nt/ legal decision maker Care Teams [place] Cutting Machine Operator Relationship Specialty Start Date End Date Anjum Moya MD PCP - General Family Medicine 10/21/20
== END 2024-03-09 14:43 | disposition home or self-care (01) ==
LOC: LKVREF 14:43
PROVIDERS: PCP Family Medicine; Visit Provider Family Medicine
DX: M79.10 Myalgia, unspecified site (principal)
CPT/HCPCS: 86140

== ENCOUNTER 2024-08-21 09:15 | Outpatient (CLI) | payer MEDICARE, BC, SELFPAY ==
--- NOTE | 2024-08-21 10:03 | W.ANESCHARGE ---
Anesthesia Charges Start Date/Time Anesthesia Start Date: 08/21/24 Anesthesia Start Time: 10:28 Stop Date/Time Anesthesia Stop Date: 08/21/24 Anesthesia Stop Time: 11:05 Summary Extremes of Age - Over 70 or under 1: MDA
--- NOTE | 2024-08-21 11:11 | W.ANESCHARGE ---
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
== END 2024-08-21 09:16 | disposition home or self-care (01) ==
LOC: OP CLINIC 09:16
PROVIDERS: PCP Family Medicine; Visit Provider Surgery
DX: D12.3 Benign neoplasm of transverse colon (principal); K57.30 Diverticulosis of large intestine without perforation or abscess without bleeding; Z85.038 Personal history of other malignant neoplasm of large intestine
CPT/HCPCS: 00811; 45385; 88305; 99100; J2704

== ENCOUNTER 2025-02-12 15:13 | Outpatient (CLI) | payer MEDICARE, BC, SELFPAY | END 2025-02-12 15:14 | disposition home or self-care (01) | PROVIDERS: PCP Family Medicine; Visit Provider Family Medicine | DX: R51.9 Headache, unspecified (principal) | CPT/HCPCS: 80053; 86140 ==

== ENCOUNTER 2025-02-13 20:25 | Emergency (ER) | payer MEDICARE, BC, SELFPAY ==
[2025-02-13] VITALS (8 sets, daily range): BP systolic 127; BP diastolic 82; PULSE 74–99; RESP 20; TEMP 35.9; O2SAT 90–99; BMI 31.6
--- OUTSIDE RECORDS SUMMARY | 2025-02-13 20:28 | XMS_ITS | Data Portability ---
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 Plan of Treatment Reminders Order Date Submit Date Provider Last Modified By Organization Details Last Modified Time Details Appointments None recorded. Lab urinalysis , dipstick 2023 024 abajema [facility], [address], [place], [address], 4 15:05:32 urinalysis , dipstick 2022 023 abajema [facility], [address], [place], [address], 3 13:23:27 Referral None recorded. Procedures None recorded. Surgeries None recorded. Imaging None recorded. Medication Orders None recorded. Patient TargetsNo targets recorded. Patient Instructions Encounter Date Encounter Id Patient Instructions Last Modified By Organization Details Last Modified Time 08/02/2023 [id number] Treatment option s for Overactive Bladder, including the care pathway & an annotated handout were reviewed with the patient today. We also reviewed third line OAB therapy including peripheral tibial nerve stimulation (PTNS), Botolinum toxin injections (Botox), and Neuromodulation (Interstim & Axonics) and possible further urodynamic testing to test bladder function if the above fails. Botox injections relaxes the bladder muscle. This allows more urine to be held in the bladder before having to use the restroom. The botox injections are primarily done in the office using cystoscopy. The medication goes through the cystoscope with a small needle into multiple areas of the bladder muscle. The injection needs to be repeated 1 to 2 times a year. Complications are very minor; of concern, patients could develop a urinary tract infection or up to 5% chance of urinary retention that may require short-term intermittent catheter. Neuromodulation (Axonics & Interstim) is sacral nerve electrical stimulation that targets the communication problem between the brain and the nerves that control the bladder. The Sacral Neuromodulation uses an external device during a trial period and an internal device for long-term therapy. The trial test is done in the office with use of an external battery over the weekend. If the test trial is successful, there are internal neuromodulation devices that are non-rechargeable (lasting between 6 -8 years) & rechargeable (lasting 15 years). Percutaneous tibial nerve stimulation is a minimally invasive way to improve bladder control by stimulating the peripheral nerves that control the bladder. A small needle is inserted near a nerve in the ankle and connected to an external device that delivers small pulses to the nerve. This is done in a series of 12 weekly nurse visits with option for monthly visits thereafter. [email or web address] Not available 08/02/2023 13:13:48 Reason for Referral None Reported. Results Created Date Observation Date Name Description Value Unit Range Abnormal Flag Note LastModifiedBy Organization Detail LastModifiedTime 08/02/2008/02/2023 urina lysis , dipst ick Color-Status Yellow Not Available [facility] [address], [place], [address], 08/02/2023 12:34:54 08/02/2008/02/2023 urina lysis , dipst ick Clarity-Stat us Clear Not Available [facility] [address], [place], [address], 08/02/2023 12:34:54 08/02/2008/02/2023 urina lysis , dipst ick pH-Status 6.0 Not Available [facility] [address], [place], [address], 08/02/2023 12:34:54 08/02/2008/02/2023 urina lysis , dipst ick Nitrates-Sta tus negati ve Not Available [facility] [address], [place], [address], 08/02/2023 12:34:54 08/02/2008/02/2023 urina lysis , dipst ick Blood-Status Negati ve Not Available [facility] [address], [place], [address], 08/02/2023 12:34:54 08/02/2008/02/2023 urina lysis , dipst ick Leuko-Status Negati ve Not Available [facility] [address], [place], [address], 08/02/2023 12:34:54 08/02/2008/02/2023 urina lysis , dipst ick Specimen Type Voided Not Available [facility] [address], [place], [address], 08/02/2023 12:34:54 11/15/1911/15/2023 urina lysis , dipst ick Color-Status Yellow Not Available [facility] [address], [place], [address], 11/15/2023 14:03:36 11/15/19 24 11/15/2023 urina lysis , dipst ick Clarity-Stat us Clear Not Available [facility] [address], [place], [address], 11/15/2023 14:03:36 11/15/19 24 11/15/2023 urina lysis , dipst ick Glucose-Stat us Negati ve Not Available [facility] [address], [place], [address], 11/15/2023 14:03:36 11/15/19 24 11/15/2023 urina lysis , dipst ick Bilirubin-St atus Negati ve Not Available [facility] [address], [place], [address], 11/15/2023 14:03:36 11/15/19 24 11/15/2023 urina lysis , dipst ick Ketones-Stat us Negati ve Not Available [facility] [address], [place], [address], 11/15/2023 14:03:36 11/15/19 24 11/15/2023 urina lysis , dipst ick Sp Enterprise-Stat us >=1.03 0 Not Available [facility] [address], [place], [address], 11/15/2023 14:03:36 11/15/19 24 11/15/2023 urina lysis , dipst ick pH-Status 6.0 Not Available [facility] [address], [place], [address], 11/15/2023 14:03:36 11/15/19 24 11/15/2023 urina lysis , dipst ick Nitrates-Sta tus negati ve Not Available [facility] [address], [place], [address], 11/15/2023 14:03:36 11/15/19 24 11/15/2023 urina lysis , dipst ick Blood-Status Trace Not Available [facility] [address], [place], [address], 11/15/2023 14:03:36 11/15/19 24 11/15/2023 urina lysis , dipst ick Leuko-Status Negati ve Not Available [facility] [address], [place], [address], 11/15/2023 14:03:36 11/15/19 24 11/15/2023 urina lysis , dipst ick Specimen Type Voided Not Available [facility] [address], [place], [address], 11/15/2023 14:03:36 11/15/19 24 11/15/2023 urina lysis , dipst ick Performed by Eugene Cueva RN Not Available [facility] [address], [place], [address], 11/15/2023 14:03:36 09/09/20 23 XR, kidne y + urete r + bladd er No observ ation record ed. shaun Not Available 09/12 14:21:50 Result Notes None recorded. Procedures Surgical History Date Name Laterality Status Provider Name and Address Organization Details Recorded Time 024 Sacral neuromodulation w/o reprogramming completed Avni Broderick PA-C [address], [place], [address], [facility] 11/15/2023 15:04:03 024 Urinalysis completed Eugene Cueva [facility] 11/15/2023 14:14:25 024 Bladder Scan completed Eugene Cueva [facility] 11/15/2023 14:14:16 023 PNE Removal Test Leads completed Avni Broderick PA-C [address], [place], [address], [facility] 09/13/2023 10:00:48 023 Bladder Scan completed Cecelia Tran [facility] 09/13/2023 09:34:00 023 PNE - Bilateral Peripheral Nerve Evaluation completed Fam Alcazar MD [address], [place], [address], [facility] 09/09/2023 09:51:04 023 Bladder Scan completed Juju Thakur [facility] 08/02/2023 12:39:21 023 CystoscopyFemale completed Avni Broderick PA-C [address], [place], [address], [facility] 06/30/2023 15:10:18 023 Bladder Scan completed Theresaflavio Herzog [facility] 06/30/2023 14:46:25 023 Colonoscopy completed Theresa Herzog [facility] 06/30/2023 14:43:04 Breast reduction completed Theresa Herzog [facility] 06/30/2023 14:43:12 hysterectomy completed Theresa Herzog [facility] 06/30/2023 14:43:17 Cholecystectomy completed Theresa Stringer [facility] 06/30/2023 14:43:22 procedure on back completed Theresa Herzog [facility] 06/30/2023 14:43:31 Imaging Results Imaging Date Name Status LastModified by Organiz ation Details LastModified Time 09/09/2023 XR, kidney + ureter + bladder completed [email or web address] Information not available 09/12/2023 14:21:50 Procedure Notes None recorded. Medical Equipment None Reported. Allergies Allergen ID Allergen Name Allergen Category Reaction Reaction Severity Criticality Documentation Date Start Date Code Code System Note Provider Name and Address Organization Details Recorded Time 050634 cephalexi n medicatio n Not available Not available Not available 09/13/2023 2231 RxNorm Cecelia peralta, [facility] 09:33:49 Medications Name Sig Start Date Stop Date Status Note LastModified by Organization Details LastModified Time celecoxib 200 mg capsule TAKE ONE CAPSULE BY MOUTH ONCE DAILY active Not Available Not Available No t Available clindamycin HCl 300 mg capsule TAKE 1 CAPSULE BY MOUTH EVERY 8 HOURS FOR 3 DAYS 01/12 completed Not Available Not Available Not Available oxybutynin chloride ER 10 mg tablet,exte nded release 24 hr TAKE 1 TABLET BY MOUTH EVERY DAY 08/02 completed Not Available Not Available Not Available diltiazem CD 180 mg capsule,ext ended release 24 hr TAKE ONE CAPSULE BY MOUTH ONCE DAILY NEEDED FOR HIGH BLOOD PRESSURE active Not Available Not Available No t Available ciprofloxac in 500 mg tablet TAKE 1 TABLET BY MOUTH TWICE DAILY FOR 7 DAYS 06/30 completed Not Available Not Available Not Available sulfamethox azole 800 mg-trimetho prim 160 mg tablet TAKE 1 TABLET BY MOUTH TWICE DAILY FOR 14 DAYS 08/02 completed Not Available Not Available Not Available tramadol 50 mg tablet TAKE 1 TO 2 TABLETS BY MOUTH EVERY 6 HOURS NEEDED FOR PAIN. 06/30 completed Not Available Not Available Not Available meclizine 25 mg tablet TAKE 1/2 TO 1 TABLET BY MOUTH EVERY 6 HOURS NEEDED FOR DIZZINESS active Not Available Not Available No t Available hydrochloro thiazide 25 mg tablet TAKE 1 TABLET BY MOUTH DAILY active Not Available Not Available No t Available metoprolol succinate ER 25 mg tablet,exte nded release 24 hr TAKE ONE-HALF TABLET BY MOUTH EVERY DAY active Not Available Not Available No t Available estradiol 0.01% (0.1 mg/gram) vaginal cream USE 1 GRAM VAGINALLY 2 TIMES A WEEK active Not Available Not Available No t Available scopolamine 1 mg over 3 days transdermal patch APPLY 1 PATCH TOPICALLY TO THE SKIN EVERY 3 DAYS NEEDED FOR MOTION SICKNESS 06/30 completed Not Available Not Available Not Available diltiazem ER (XR/XT) 180 mg capsule,ext ended release 24 hr, controlled 06/30 completed Not Available Not Available Not Available rizatriptan 5 mg tablet TAKE 1 TABLET BY MOUTH NEEDED FOR MIGRAINE HEADACHE active Not Available Not Available No t Available oxycodone 5 mg tablet TAKE 1 TABLET BY MOUTH EVERY 4 HOURS NEEDED FOR PAIN *CAUTION: OPIOID. RISK OF OVERDOSE AND ADDICTION . active Not Available Not Available No t Available escitalopra m 20 mg tablet TAKE ONE TABLET BY MOUTH ONCE DAILY active Not Available Not Available No t Available cholestyram ine (with sugar) 4 gram oral powder TAKE 2 GM BY MOUTH DAILY active Not Available Not Available No t Available trospium 20 mg tablet TAKE 1 TABLET BY MOUTH DIRECTED active Not Available Not Available No t Available fesoterodin e ER 4 mg tablet,exte nded release 24 hr 08/02 completed Not Available Not Available Not Available GaviLyte-G 236 gram-22.74 gram-6.74 gram-5.86 gram oral solution 240ML BY MOUTH EVERY 10 MINUTES UNTIL FECAL EFFLUENT IS CLEAR. 09/13 completed Not Available Not Available Not Available Vitals Date Recorded Body height Body mass index (BMI) Body weight Provider Name and Address Organization Details Last Updated DateTime 08/02/2023 160.02 cm 31 kg/m2 39191.66 g Juju Thakur [facility] 08/02/2023 12:31:09 Date Recorded Body height Body mass index (BMI) Body weight Provider Name and Address Organization Details Last Updated DateTime 09/13/2023 160.02 cm 31 kg/m2 57826.66 g Cecelia Tran [facility] 09/13/2023 09:33:07 Date Recorded Body height Body mass index (BMI) Body weight Provider Name and Address Organization Details Last Updated DateTime 11/15/2023 160.02 cm 31 kg/m2 96152.66 g [facility]/15[facility] 14:09:57 Date Recorded Body height Body mass index (BMI) Body weight Provider Name and Address Organization Details Last Updated DateTime 01/13/2024 160.02 cm 31 kg/m2 15134.66 g Eugene [facility] 01/13/2024 10:38:06 Social History Question Answer Notes LastModified by Organizat groSolar Details LastModified Time Tobacco Smoking Status [facility]30[facility]2023 14:43:46 What Is Your Level Of Caffeine Consumption? Moderate Information not available 06/30/2023 What Was The Date Of Your Most Recent Tobacco Screening? 01/13/2024 [email or web address] Information not available 01/13/2024 Sex: Unknown Functional Status Question Answer Note LastModified by Organizat ion Details LastModified Time What is your level of alcohol consumption? Occasional Information not available 06/30/2023 Mental Status None recorded. Family History Relationship Description Onset Age of this Age Resolved Age Notes LastModified by Organization Details LastModified Time Father Family history of cancer of colon [email or web address] Not available 2022 14:41:29 Mother Family history of malignant neoplasm kmasberg Not available 2022 14:41:47 Sister Family history of cancer of colon kmasberg Not available 2022 14:41:50 Sister Family history of diabetes mellitus lzi Not available 2022 14:42:03 Medical History Condition Response Other N High Blood Pressure Y Kidney Stones N Lung Disease N Depression Y GERD/Acid Reflux Y Diabetes N Sexually Transmitted Infection N Bleeding Disorder N Cancer Y High Cholesterol N Heart Disease N Gynecological HistoryNo gynecological history recorded. Obstetrics History GPAL:G 0 P 0 0 0 0 Immunizations Vaccine Type Date Status Note Provider Nam e and Address Organization Details Recorded Time [facility] 12:31:12 zoster recombinant 2 [facility]/02/2023 12:31:12 COVID-19, mRNA, LNP-S, PF, 30 mcg/0.3 mL dose 1 completed Juju peralta [facility] 08/02/2023 12:31:12 COVID-19, mRNA, LNP-S, PF, 30 mcg/0.3 mL dose 1 completed Juju peralta [facility] 08/02/2023 12:31:12 COVID-19, mRNA, LNP-S, PF, 30 mcg/0.3 mL dose 1 completed Juju peralta [facility] 08/02/2023 12:31:12 COVID-19, mRNA, LNP-S, PF, 30 mcg/0.3 mL dose, tila-sucrose 2 completed Juju peralta [facility] 08/02/2023 12:31:12 pneumococcal polysaccharide PPV23 9 [facility]23 12:31:12 [facility]ap 4 [facility] 12:31:12 Pneumococcal conjugate PCV 13 8 [facility]23 12:31:12 Past Encounters Encounter ID Performer Location Encounter Start Date Encounter Closed Date Diagnosis/Indication Diagnosis SNOMED-CT Code Diagnosis ICD10 Code Diagnosis Note [id number] Fam Alcazar MD [facility] [address] [facility] [address] [place] [address] 06/30/2023 14:20:36 07/04/2023 18:54:41 Overactive urinary bladder 248908399 N32.81 -Symptoms consistent with OAB/UUI-Di scussed diet modificati on-Stop trospium given that it is not helpful for symptoms-W ill trial Toviaz 4 mg. Discussed side effects of dry eyes, dry mouth, and constipati on.-Will trial Gemtesa. Samples given today. Discussed that it could take 4-6 weeks to see the effects of this medication and potential cost of this medication .-Could be a candidate for Botox, SNS, and PTNS in the future-Fol low up in 6 weeks with Avni Female str ess incontinence 34393618 N39.3 -weakly positive stress test on exam today-Judy france at this time, will work on OAB first [id number] Fam Alcazar MD [facility] [address] [place] [address] 08/02/2023 11:39:07 08/04/2023 16:41:37 Overactive urinary bladder [id number] N32.81 -Stop OAB medication given side effects-Di scussed 3rd line therapies in detail today, Botox and SNS-Did discuss with the patient that she may be higher risk for Botox with history of UTIs in the past-Also would be a good candidate for SNS in the future, could be a better therapy options then botox fci-She was given educationa l materials for SNS and Botox (100U). 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 She is interested in SNSSacral nerve electrical stimulatio n is a neuromodul ation therapy that targets the communicat ion problem between the brain and the nerves that control the bladder. The Sacral Neuromodul ation uses an external device during a trial period and an internal device for long-term therapy. The trial test is done in the office and based on the outcome you and your Urologist will determine the next step. This patient is under my care for her chronic symptoms of Overactive Bladder (OAB) including urgency, frequency, urge incotinenc e and nocturia. Her symptoms started more than 12 months ago and very severe ( on the scale from 1-5) affecting her quality of life. She has been compliant and has failed behavioral therapies such as: Kegel's exercises ( as an example of Physcial therapy), Bladder Training, Fluid Management , and Dietary Modificati ons Furthermor e, they have tried and failed anticholin ergic medication s such as (Oxybutyni n, Trospium ) and B agonist (Gemtesa ) with side effects. I am recommendi ng Bilateral Peripheral Nerve Evaluation ( Axonics [place] [address] with the next step of possible Sacral Nerve Stimulatio n implant placement if the patient demonstrat es improvemen t in her symptoms. [id number] Fam Alcazar MD [facility] [address] [facility] [address] [place] [address] 09/09/2023 09:35:23 09/19/2023 12:23:00 Urge incontinence of urine [id number] N39.41 post procedure instructio ns discussed; fu with Avni on Tuesday [id number] Avni Broderick PA-C [facility] 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 She would like to proceed with this. Looking to schedule in late Oct 2023. Discussed Stage I & II Axonics/In terstim placement including risks, benefits, complicati ons and post-opera tive precaution s.Pt may shower after 48 hours. Incisions will be closed with disolvable sutures with biologic glue. Activity restrictio ns: no strenuous activity, running, bending, twisting or yoga for 10 days. No submerging for 10 days. If on blood thinner, will need to hold 5d prior. incident to: This patient was seen for evaluation of urge incontinen ce of urine on 09/09/[address] Alcazar. Plan today follows the plan of care outlined at that visit. [id number] Avni Broderick PA-C [facility] [address] [place] [address] 11/15/2023 13:48:25 11/21/2023 13:55:47 Urge incontinence of urine 55689600 N39.41 -Doing very well post Axnocis (F15) SNS placement on 11/07/[address] Alcazar- Device checked today, no impedences , on originally set program with great response at low setting (0.45 ma)-Discus sed the remote today, and how to use, answered questions for patient and regarding remote, contacting Axonics, etc.-Discu ssed activity restrictio ns: no strenuous activity, running, bending, twisting or yoga for 10 days after surgery.-F ollow up in [address] Alcazar. Incident to: This patient was seen for evaluation of urge incontinen ce of urine on 09/09/[address] Alcazar. Plan today follows the plan of care outlined at that visit. 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 botoxfu in 6 months for PVR/UA/Je dder score Health Concerns Section Related Observation LastModified by Organization Detai ls LastModified Time None Recorded Concern Status LastModified by Organization Details LastModified Time None Recorded Advance Directives Directive None Recorded Payers Insurance Date Sequence Insurance Name Policy Number Policy Singh Covered Member ID Singh Member ID Guarantor Name 01/19/2024 1 [place] [id number] Kriss Villegas [id number] Kriss Villegas 11/07/2023 1 [place] [id number] Kriss Villegas [id number] Kriss Villegas Notes Date Note Type Note Provider Name and Address Organization Details Recorded Time 08/02/2023 text/html 73 yo female who presents for evaluation of urinary incontinece.1. UUI/SUIGiven sample of gemtesa last visit. She notes that she develop diarrhea, migraines, body rash, and fatigue with this medication. This resolved after stopping the medication. She then tried oxybutynin and notes that she developed migraine, body aches, and fatigue with this. She is interested in 3rd line therapies. Her daughter has spina bifida and does botox, she has intrest in this. Did have a UTI after last visit. E.Coli, panS (07/04/23). Treated with Bactrim DS by her PCP.Previous therapies:-Trospium (d/c not effective)-gemtesa (d/c side effects-oxybutynin (d/c side effects) Baseline symptoms:Duration: A couple of years, progressively worseningIncontinence: Yes, associated with urge daily, also with coughUrinary Frequency: every 30 minutes to 1 hourNocturia: 2-3UCx:-Notes last UTI was spring 2022, unable to view culture-She notes about 4 UTIs a yearMedHx:-Anxiety-HTN -DDD and history disc herniationSurgHx:-Lumb ar fusion-microdiscectomy -Hysterectomy and BSO (benign growth)Pelvis with vaginal dryness and atrophy, no POP, very weakly positive stress test with bladder fill to 150 cc 06/30/23Cysto normal on 06/30/23 UA: Without signs of infectionPVR: 1 cc Fam Alcazar MD [address] [place] [address],[address], [place], [address], [facility] 08/02/2023 14:06:22 09/09/2023 text/html 73 yo female who presents for Axonics PNE; both sides excellent responses1. Breanne patient presents for Axonics PNE today for a couple of years of progressively worsening incontinence associated with urge and urinary frequency every 30 minutes to 1 hour. She has tried multiple medications without relief of symptoms and side effects.Previous therapies:-Trospium (d/c not effective)-gemtesa (d/c side effects)-oxybutynin (d/c side effects, headache, dry mouth)UCx:-Notes last UTI was spring 2022, unable to view culture-She notes about 4 UTIs a yearMedHx:-Anxiety-HTN -DDD and history disc herniationSurgHx:-Lumb ar fusion-microdiscectomy -Hysterectomy and BSO (benign growth)Pelvis with vaginal dryness and atrophy, no POP, very weakly positive stress test with bladder fill to 150 cc 06/30/23Cysto normal on 06/30/23 Fam Alcazar MD [address] [place] [address],[address] [place] [address], [phone], [facility] 09/09/2023 10:39:52 09/13/2023 text/html 73 yo female who presents for Axonics PNE 1. UUI-s/p Axonics PNE on 09/09/23. Bilateral leads placed with excellent responses-She notes she did switch leads on Tuesday (L to R). Notes doing better when turning stimulation up.-Overall she notes about 75% improvement of symptoms-She notes that she had decreased urinary urgency, decreased urinary frequency, and decreased UUI episodes. Could go about 3-4 hours without voiding. More time to get to the bathroom with urge.Previous therapies:-Trospium (d/c not effective)-gemtesa (d/c side effects)-oxybutynin (d/c side effects, headache, dry mouth)UCx:-Notes last UTI was spring 2022, unable to view culture-She notes about 4 UTIs a yearMedHx:-Anxiety-HTN -DDD and history disc herniationSurgHx:-Lumb ar fusion-microdiscectomy -Hysterectomy and BSO (benign growth)Pelvis with vaginal dryness and atrophy, no POP, very weakly positive stress test with bladder fill to 150 cc 06/30/23Cysto normal on 06/30/23 PVR: 0 cc Fam Alcazar MD [address] [place] [address],[facility], [place], [address], [facility] 09/13/2023 10:06:49 11/15/2023 text/html 73 yo female who presents for Axonics PNE 1. UUI-s/p Axonics PNE on 09/09/23, noted 60-75% improvement of symptoms-Most recently s/p Axonics (F15) SNS placement with Dr. Alcazar on 11/07/23-75-80% improvement of symptoms overall. She notes decreased urinary urgency, no longer having strong urge out of the blue that before would send her running to the bathroom. She has less urinary frequency. Nocturia x1 from once every 2 hours.-Very happy with results Current program: Program 1 (original program), 0.45 ma, perineal sensationPrevious therapies:-Trospium (d/c not effective)-gemtesa (d/c side effects)-oxybutynin (d/c side effects, headache, dry mouth)UCx:-Notes last UTI was spring 2022, unable to view culture-She notes about 4 UTIs a yearMedHx:-Anxiety-HTN -DDD and history disc herniationSurgHx:-Lumb ar fusion-microdiscectomy -Hysterectomy and BSO (benign growth)Pelvis with vaginal dryness and atrophy, no POP, very weakly positive stress test with bladder fill to 150 cc 06/30/23Cysto normal on 06/30/23 UA: Without signs of infectionPVR: 1 ccExam: Incisions well healing, no surrounding erythema or discharge, minimal tenderness to palpation. Fam Alcazar MD [address] [facility],[address], [place], [address], [facility] 11/15/2023 22:52:34 01/13/2024 text/html 73 YO F who pres ents for Axonics PNE 8 week follow-up (SNS placement w/ Dr. Alcazar on 11/07/23) 11/15/23 appt notes (w/ [facility]):- Device checked, no impedence, on originally set program with great response at low setting (0.45 ma). 1. UUI-s/p Axonics PNE on 09/09/23, noted 60-75% improvement of symptoms-Most recently s/p Axonics (F15) SNS placement with Dr. Alcazar on 11/07/23-75-80% improvement of symptoms overall. She notes decreased urinary urgency, no longer having strong urge out of the blue that before would send her running to the bathroom. She has less urinary frequency. Nocturia x1 from once every 2 hours.-Very happy with results Current program: Program 1 (original program), 0.45 ma, perineal sensationPrevious therapies:-Trospium (d/c not effective)-gemtesa (d/c side effects)-oxybutynin (d/c side effects, headache, dry mouth)UCx:-Notes last UTI was spring 2022, unable to view culture-She notes about 4 UTIs a yearMedHx:-Anxiety-HTN -DDD and history disc herniationSurgHx:-Lumb ar fusion-microdiscectomy -Hysterectomy and BSO (benign growth)Pelvis with vaginal dryness and atrophy, no POP, very weakly positive stress test with bladder fill to 150 cc 06/30/23Cysto normal on 06/30/23 Bladder score: 09/25, intermittent urge incontinence,overall happy, still one pad a day Fam Alcazar MD [address] [facility],[address], [place], [address], [facility] 01/13/2024 10:55:46 OBGyn Episode No OBEpisode recorded.
--- OUTSIDE RECORDS SUMMARY | 2025-02-13 20:28 | XMS_ITS | Clinical Summary ---
Author Organization [facility] Address [address] [place] [address] Care Team Providers Care Facilities Specialist Name Role Phone Anjum Moya MD Primary Care Provider [phone] Allergies Active Allergy Reactions Criticality Noted Date Comments Cephalexin Difficulty breathing 11/03/2020 Tolterodine 06/30/2015 Shortness of breath Medications hydrochlorothiaz jennifer (HYDRODIURIL) 25 MG tablet Take 12.5 mg [...] for sleep Active oxyCODONE (ROXICODONE) 5 MG tabletIndication s:Spinal stenosis, lumbar region, with neurogenic claudication Take 1-2 tablets (5-10 mg) by mouth every 4 hours as needed 20 tablet Active Active Problems Problem Noted Date Diagnosed Date Spinal stenosis, lumbar serena on, with neurogenic claudication 11/04/2020 Social History Tobacco Use Types Packs/Day Years Used Date Smoking Tobacco: Never Smokeless Tobacco: Never Alcohol Use Standard Drinks/Week Comments Yes 0 (1 standard drink = 0.6 oz pur e alcohol) rare Adolescent Education Answer Date Record ed Getting School Help Needed Not on file 06/24 Comments No Sex and Gender Information Value Date Recorded Sex Assigned at Not on file Legal Sex Female 3:04 PM CDT Gender Identity Not on file Sexual Orientation Not on file Last Filed Vital Signs Vital Sign Reading Time Taken Comments Blood Pressure 124/64 06/19/2022 2:14 PM CDT Pulse 74 06/19/2022 2:14 PM CDT Temperature 37.1 C (98.8 F) 06/19/2022 2:14 PM CDT Respiratory Rate 16 11/06/2020 7:35 AM FAMILY AND MARRIAGE COUNSELLOR Oxygen Saturation 98% 06/19/2022 2:14 PM CDT Inhaled Oxygen Concentration - - Weight 81.6 kg (180 lb) 06/19/2022 2:14 PM CDT Height 162.6 cm (5' 4) 11/04/2020 6:14 AM FAMILY AND MARRIAGE COUNSELLOR Body Mass Index 30.9 11/04/2020 6:14 AM FAMILY AND MARRIAGE COUNSELLOR Plan of Treatment Health Maintenance Due Date Last Done Comments ADVANCE CARE PLANNING 1952 ANNUAL REVIEW OF HM ORDERS 1952 CT COLONOGRAPHY 1952 DEXA 1952 FIT 1952 FLEX SIG 1952 MAMMO SCREENING 1952 sDNA (Cologuard) 1952 COLONOSCOPY 1962 COLORECTAL CANCER SCREENING 1962 HEPATITIS C SCREENING 1970 LIPID 1992 FALL RISK ASSESSMENT 2017 MEDICARE ANNUAL WELLNESS VISIT 2017 ZOSTER IMMUNIZATION (2 of 2) 02/11/2022 12/17/2021 DIABETES SCREENING 11/06/2023 11/06/2020, 11/05/2020 DTAP/TDAP/TD IMMUNIZATION (2 - Td or Tdap) 02/13/2024 02/12/2014 COVID-19 Vaccine ( season) 2024 04/13/2022, 09/21/2021, 12/27/2020, Additional history exists PHQ-2 (once per calendar year) 2024 INFLUENZA VACCINE (Season Ended) 2025 RSV VACCINE (1 - 1-dose 75+ series) 2027 Pneumococcal Vaccine: 50+ Years Completed 09/07/2019, 09/12/2018 HPV IMMUNIZATION Aged Out No longer e ligible based on patient's age to complete this topic MENINGITIS IMMUNIZATION Aged Out No l onger eligible based on patient's age to complete this topic Medical Devices Implanted Type Area Emergency Vehicle Technician Device Identifier Shelf Expiration Date Model / Serial / Lot Graft Bone Putty Dbx 10ml [id number] Implanted:Qty : 1 on 11/04/2020 by Isai Colon MD at [facility] Bone/Tis noemí/Biol ogic N/A: Spine Lumbar MUSCULOSKELETAL BOYER 04/14/2022 [id number] / [id number] / 6.5 X 45mm Screw Implanted:Qty : 4 on 11/04/2020 by Isai Colon MD at [facility] N/A: Spine Lumbar DAKSHA [id number] / / 07 2020 Closure Tops Implanted:Qty : 4 on 11/04/2020 by Isai Colon MD at [facility] N/A: Spine Lumbar DAKSHA [id number]. 001 / 07 2020 40mm Rods Implanted:Qty : 2 on 11/04/2020 by Isai Colon MD at [facility] N/A: Spine Lumbar DAKSHA [id number]. [id number] / / 07 2020 Procedures Procedure Name Priority Date/Time Associated Diagnosis Comments GLUCOSE Routine 11/06/2020 7:00 AM FAMILY AND MARRIAGE COUNSELLOR from Last 3 Months or Most Recently Relevant to Health Maintenance Results * Glucose (11/06/2020 7:00 AM FAMILY AND MARRIAGE COUNSELLOR) Glucose 95 70 - 99 mg/dL 11/06/2020 7:25 AM FAMILY AND MARRIAGE COUNSELLOR [facility] Blood specimen (specimen) 11/06/2020 7:00 AM FAMILY AND MARRIAGE COUNSELLOR 11/06/2020 7:01 AM FAMILY AND MARRIAGE COUNSELLOR us Isai Colon MD LAB - BLOOD ORDERABLES Final R esult [facility] [address] [place] [address], [facility] [phone] from Last 3 Months or Most Recently Relevant to Health Maintenance Insurance [facility] BLUE Advance Directives For more information, please contact: [phone] * Full Code (Latest Code Status on File) Date Activated Date Inactivated Comments 11/04/2020 1:35 PM 11/06/2020 4:41 PM All basic and advanced life-sustaining interventions are performed as appropriate Question Answer Comments Code status determined by: Discussion with patie nt/ legal decision maker Care Teams Facilities Specialist Relationship Specialty Start Date End Date Anjum Moya MD PCP - General Family Medicine 10/21/20
--- OUTSIDE RECORDS SUMMARY | 2025-02-13 20:28 | XMS_ITS | Clinical Summary ---
Author Organization [facility] Address [facility] [place] [address] Care Team Providers Care Bean Roaster Name Role Phone Annemarie Locke MD Primary Care Provider Álvaro sweet Allergies Active Allergy Reactions Criticality Noted Date Comments Tolterodine Other - Describe In Comment Field 05/01/2015 Difficulty in swallowing due to dryness. Sx resolved when medication stopped Medications gabapentin (NEURONTIN) 100 mg capsuleIndication s:DDD (degenerative disc disease), lumbar,Low back pain radiating to right leg Take 1 tab in the morning and 3 tabs(300mg) at night. 120 capsule 3 5 Active diltiazem CD (CARTIA XT) 180 mg extended release 24 hr capsuleIndication s:HTN (hypertension) Take 1 capsule by mouth once daily. 90 capsule 3 5 Active citalopram (CELEXA) 40 mg tabletIndications :Anxiety Take 1 tablet by mouth once daily. 90 tablet 3 5 Active rizatriptan (MAXALT) 10 mg tabletIndications :Hx of migraine headaches Take 1 tablet by mouth every 2 hours if needed for Migraine. Max dose: 30mg per 24 hrs. Will call for refills 9 tablet 3 5 Active trimethoprim-sulf amethoxazole, 160-800 mg, (BACTRIM DS, SEPTRA DS) tabletIndications :Recurrent UTI (urinary tract infection) Take 1 tablet by mouth 2 times daily. 20 tablet 0 5 Active tolterodine (DETROL) 2 mg tabletIndications :Urge incontinence of urine Take 0.5 tablets by mouth 2 times daily. 90 tablet 2 6 Active hydroCHLOROthiazi de (HCTZ) 25 mg tabletIndications :HTN (hypertension) TAKE 1/2 TABLET BY MOUTH ONCE DAILY. 15 tablet 6 Active naproxen (NAPROSYN) 500 mg tabletIndications :Bilateral hip pain TAKE ONE (1) TABLET BY MOUTH TWICE DAILY WITH A MEAL 180 tablet 7 Active Active Problems Problem Noted Date Diagnosed Date Sensorineural hearing loss, bilateral 09/20/2014 DDD (degenerative disc disease), lumbar 08/20/20 14 Overview (06/17/2015): Lumbar surgery 2011, disc ~ May 2015:L4-L5 TF epidural steroid injection by Dr. Ricks. Anxiety 08/20/2014 Arthritis 08/20/2014 Overview (08/20/2014): Left hip, has had corticosteroid injection 04/15 Left leg pain 08/20/2014 Overview (08/20/2014): Hx fx, surgical repair 2005 Colon polyps 08/20/2014 Overview (08/20/2014): Last colonoscopy 2010 Urge incontinence of urine 08/20/2014 Vertigo 08/20/2014 Hx of migraine headaches 08/20/2014 Overview (08/20/2014): Better over past few years HTN (hypertension) 08/20/2014 Immunizations Immunization Administration Dates Next Due Tdap 02/12/2014 Family [...] oz pur e alcohol) once couple months Comments No Sex and Gender Information Value Date Recorded Sex Assigned at Not on file Legal Sex Female 6:16 AM GLASSIE Gender Identity Not on file Sexual Orientation Not on file 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 Not on file Not on file Not on file Obstetrics History Para Term AB IAB SAB Ectopic Multiple Livin g Live Births 5 5 5 5 5 Date Outcome GA Total Labor Labor/2nd/3rd Weight Sex Type Anes PTL Chioma A1 A5 Name Clin Term Living Term Living Term Living Term Living Term Living Last Filed Vital Signs Vital Sign Reading Time Taken Comments Blood Pressure 123/72 10/02/2015 8:34 AM GLASSIE Pulse 81 10/02/2015 8:34 AM GLASSIE Temperature 36.8 C (98.2 F) 08/22/2015 8:11 AM GLASSIE Respiratory Rate - - Oxygen Saturation 95% 10/02/2015 8:34 AM GLASSIE Inhaled Oxygen Concentration - - Weight 82.6 kg (182 lb 3.2 oz) 10/02/2015 8:34 A M GLASSIE Height 165 cm (5' 4.96) 10/02/2015 8:34 AM GLASSIE Body Mass Index 30.36 10/02/2015 8:34 AM GLASSIE Plan of Treatment Health Maintenance Due Date Last Done Comments Depression screening for age 12+ 1964 BMI (ht and wt on same day) for age 18+ 1970 Pneumococcal series for age 50+ (1 of 1 - PCV) 2002 Zoster (shingles) series for age 50+ (1 of 2) 2002 Mammogram for age 45-75 08/20/2015 08/20/2014, 05/14 Fecal testing non-DNA (FIT,F OBT,iFOBT) for age 45-75 05/07/2017 05/07/2016, 05/15/2015 DEXA/DXA scan for age 65+ 2017 09/17/2014 Lipids for age 45-75 08/22/2020 08/22/2015, 10/18/19 08 Tetanus booster 02/13/2024 02/12/2014 COVID-19 vaccine series ( - 2023- season) 2024 Influenza Vaccine (Season Ended) 2025 RSV vaccine for adults or pr egnancy (1 - 1-dose 75+ series) 2027 Tdap Completed 02/12/2014 Hepatitis C screening for age 18-79 Completed 08/22 Procedures Procedure Name Priority Date/Time Associated Diagnosis Comments OCCULT BLOOD IFOBT STOOL Routine 05/07/2016 3:30 PM CDT Screening for colorectal cancer ANTI HCV Routine 08/22/2015 9:13 AM GLASSIE Need for hepatitis C screening test LIPID PANEL W REFLEX MEASURED LDL Routine 08/22/2015 9:13 AM GLASSIE Screening, lipid XR DXA BONE DENSITY 2 SITES AXIAL Routine 09/17/2014 1:59 PM GLASSIE Screening for osteoporosis XR MAMMO BILAT SCREEN FFDM (IA) Routine 08/20/2014 4:19 PM GLASSIE Other screening mammogram from Last 3 Months or Most Recently Relevant to Health Maintenance Results * OCCULT BLOOD IFOBT STOOL (05/07/2016 3:30 PM CDT) STOOL BLOOD ,IFOBT Negative Negative 05/07/2016 4:10 PM CDT [facility] Stool STOOL SPECIMEN / Unknown Non-Blood / Unknown 05/07/2016 3:30 PM CDT 05/07/2016 3:30 PM CDT Junaita Back [employer] F inal Result [facility] [address] [place] [address], [place] [phone] * (ABNORMAL) LIPID PANEL W REFLEX MEASURED LDL (08/22/2015 9:13 AM GLASSIE) CHOLESTEROL,TOTAL 230(H) 100 - 199 mg/dL 08/22/2015 9:39 AM GLASSIE [facility] TRIGLYCERIDES 260(H) <150 mg/dL 08/22/2015 9:39 AM GLASSIE [facility] HDL CHOLESTEROL 46 >40 mg/dL 08/22/2015 9:39 AM GLASSIE [facility] NON-HDL CHOLESTEROL 184(H) <145 mg/dl 08/22/2015 9:39 AM GLASSIE [facility] CHOL/HDL RATIO 5.00(H) <4.50 08/22/2015 9:39 AM GLASSIE [facility] LDL CHOLESTEROL 132(H) <=130 mg/dL 08/22/2015 9:39 AM GLASSIE [facility] PATIENT STATUS FASTING 08/22/2015 9:39 AM GLASSIE [facility] Blood specimen (specimen) BLOOD SPECIMEN / Unknown Venipuncture / Unknown 08/22/2015 9:13 AM GLASSIE 08/22/2015 9:13 AM GLASSIE us Juanita Back NP CHEMISTRY F inal Result [facility] [address] [place] [address], [place] [phone] * ANTI HCV (08/22/2015 9:13 AM GLASSIE) HEPATITIS C ANTIBODY Non-Reacti ve Non-Reacti ve 08/22/2015 5:47 PM GLASSIE [facility] Blood specimen (specimen) BLOOD SPECIMEN / Unknown Venipuncture / Unknown 08/22/2015 9:13 AM GLASSIE 08/22/2015 9:13 AM GLASSIE Narrative [facility] - 08/22/2015 5:47 PM GLASSIE Antibodies to HCV not detected; does not exclude the possibility of exposure to HCV. Juanita Back NP SEND OUTS F inal Result [facility] [address] [place] [address], [place] * (ABNORMAL) XR DXA BONE DENSITY 2 SITES (09/17/2014 1:59 PM GLASSIE) Anatomical Region Laterality Modality Spine, HIPS, HIPL, HIPR Other Narrative 09/25/2014 10:57 AM GLASSIE Please see scanned document for results of this study. Procedure Note Angelia Hurtado PA - 09/25/2014 Please see scanned document for results of this study. us Juanita ortega Result * XR MAMMO BILAT SCREEN FFDM (08/20/2014 4:19 PM GLASSIE) Anatomical Region Laterality Modality BREASTS, Breast Left, Breast Right Bilateral Mammography Impressions 08/27/2014 12:37 PM GLASSIE There is no radiographic evidence for malignancy. Recommend annual mammograms. A lay language report of this examination will be provided to the patient. MAMMOGRAM ASSESSMENT: ACR 2 Benign Narrative 08/27/2014 12:37 PM GLASSIE XR MAMMO BILAT SCREEN FFDM [G0202.0] CLINICAL HISTORY: This is an asymptomatic 64 y.o. patient. INDICATION FOR EXAM: Mammogram Screening. TECHNIQUE: CC & MLO views were obtained. This digital study was evaluated with the assistance of Computer-Aided Detection. COMPARISON FILMS: Yes 05/14/13 [facility] 02/16/13 [facility] FINDINGS: Mammographically, the breast tissue has scattered fibroglandular densities. No suspicious masses or microcalcifications. Benign appearing calcifications within both breasts, Benign appearing asymmetry within left breast and Intramammary lymph node within left breast. Procedure Note Raleigh Fong DO - 08/27/2014 XR MAMMO BILAT SCREEN FFDM [G0202.0] CLINICAL HISTORY: This is an asymptomatic 64 y.o. patient. INDICATION FOR EXAM: Mammogram Screening. TECHNIQUE: CC & MLO views were obtained. This digital study was evaluatedwith the assistance of Computer-Aided Detection. COMPARISON FILMS: Yes 05/14/13 [facility] 02/16/13 [facility] FINDINGS: Mammographically, the breast tissue has scatteredfibroglandular densities. No suspicious masses or microcalcifications.Benign appearing calcifications within both breasts, Benign appearingasymmetry within left breast and Intramammary lymph node within leftbreast. IMPRESSION: There is no radiographic evidence for malignancy. Recommendannual mammograms. A lay language report of this examination will be provided to the patient. MAMMOGRAM ASSESSMENT: ACR 2 Benign Juanita ChaudharyWhitneycarlos Back [employer]SEMBL[employer] F inal Result from Last 3 Months or Most Recently Relevant to Health Maintenance Insurance [place] HB ONLY [place] [place] [employer] MR PB ONLY [place] [place] HB ONLY * Guarantor: VAMSHI VILLEGAS Account Type Relation to Patient Date of Phone Billing Address Personal/Family [address], [place] [address] Care Teams Bean Roaster Relationship Specialty Start Date End Date Annemarie Locke MD PCP - General Family Practice 10/27/16
--- NOTE | 2025-02-13 20:35 | CRLHL7_ITS ---
For Patients: As a result of the Century Cures Act, medical imaging exams and procedure reports are released immediately into your electronic medical record. You may view this report before your referring provider. If you have questions, please contact your health care provider. Indication: Left-sided head pain, dizziness Technique: Noncontrast CT through the head with multiplanar reformats Comparison: None Findings: Brain: No acute hemorrhage. No acute infarct. No significant mass effect or midline shift. No gross evidence of a mass lesion or cerebral edema. Mild chronic microvascular ischemic disease. Mild global parenchymal volume loss. Ventricles: No acute abnormality appreciated. Orbits, sinuses, mastoids: No acute abnormality appreciated. Calvarium and soft tissues: No acute abnormality appreciated. Impression: No acute abnormality appreciated. Please note that all CT scans at this facility use dose modulation, iterative reconstruction, and/or weight-based dosing when appropriate to reduce radiation dose to as low as reasonably achievable. Dictated by Rashad Bacon MD @ 02/13/2025 9:05:37 PM (Electronically Signed)
--- NOTE | 2025-02-13 21:13 | ED_ITS ---
HPI - General Adult General Date Seen: 02/13/25 Chief complaint: Neuro Symptoms/Altered Deficit Stated complaint: pins and needles feeling on head Time Seen by Provider: 02/13/25 21:06 History of Present Illness HPI narrative: 74-year-old female presenting to the ER this eveninf from home with her family for evaluation of left temporal/frontal/retroorbital headache, paresthesias affecting her head. Apparently she has been having left facial pain and left-sided head pain for a few weeks. She has been working with this with her PCP, Dr. Edwards is been diagnosed with trigeminal neuralgia. was given Rx for pain meds (tegretol?. pt left her meds in the car) last week but they are not helping. She has a h/o migraines not typically in this location and not this intense. Headache started a few weeks ago. She says it's present all the time and never goes away but does get worse sometimes. No clear pattern for what causes the pain to flair. No relation to position, activity, movement. The pain does flair and lasts minutes to hours. Not really brief (few seconds) shocks of pain. Pain never goes away but is much mildler between the flairs. In addition to the headache has been feeling dizzy and unsteady since last week. Unclear if related to her new meds. Not really spinning, but has been feeling off balance. No falls, but sometimes relies on her family to support while walking. Pain is not getting better. No facial droop. No slurred speech. Vision in left eye only has been intermittently blurry. No visual field defect or curtain of vision loss. No head injury. No fall. No fever. No neck stiffness, but sometimes the pain radiates from her left jew down into the left anterolateral neck (points to area of SCM muscle). No posterior neck pain. No numbness or weakness in arms or legs. No CO exposure. not having headache. Hearing normal .no tinnitus. no rash. Related Data Home Medications ?Medication ?Instructions ?Recorded ?Confirmed cyanocobalamin (vitamin B-12) 1,000 mcg PO DAILY 06/22/22 02/14/25 1,000 mcg tablet,extended release hydrochlorothiazide 25 mg tablet 12.5 mg PO DAILY 06/25/24 02/14/25 cholecalciferol (vitamin D3) 10 10 mcg PO QDAY 02/08/25 02/14/25 mcg (400 unit) capsule cyclosporine 0.05 % eye drops 1 drp ophthalmic (eye) BID 02/08/25 02/14/25 (Restasis MultiDose) diltiazem HCl 180 mg 180 mg PO DAILY hypertension 02/08/25 02/14/25 capsule,extended release 24 hr gabapentin 100 mg capsule 100 - 200 mg PO QHS 02/08/25 02/14/25 meclizine 25 mg tablet 25 mg PO QAM PRN dizziness 02/08/25 02/14/25 omega 9-vwq-[id number]-fish oil 60 mg-90 1 cap PO QDAY 02/08/25 02/14/25 mg-500 mg capsule (Fish Oil) Previous Rx's ?Medication ?Instructions ?Recorded metoprolol succinate 25 mg See Rx Instructions .Route 07/09/24 tablet,extended release 24 hr .COMPLEX #45 tabs cholestyramine (with sugar) 4 gram 2 g PO DAILY #378 grams 07/12/24 oral powder celecoxib 200 mg capsule See Rx Instructions .Route 07/30/24 .COMPLEX #90 caps omeprazole 20 mg capsule,delayed 20 mg PO QDAY #90 caps 10/10/24 release venlafaxine 150 mg 150 mg PO QDAY #90 caps 12/07/24 capsule,extended release 24 hr carbamazepine 100 mg 100 mg PO BID #60 tabs 02/08/25 tablet,extended release,12 hr rizatriptan 5 mg tablet 5 mg PO .As Needed as needed PRN 02/08/25 migraine headache #9 tabs tramadol 50 mg tablet 50 - 100 mg (1 - 2 x 50 mg) PO Q6H 02/08/25 PRN pain #60 tabs prednisone 10 mg tablet 20 mg (2 x 10 mg) PO QDAY #50 tabs 02/13/25 Allergies Allergy/AdvReac Type Severity Reaction Status Date / Time Cephalexin Allergy Unknown Uncoded 02/14/25 10:57 [facility] Medical History Vaginal dryness ?N89.8 - Other specified noninflammatory disorders of vagina (ICD-10) Panic attack ?F41.0 - Panic disorder [episodic paroxysmal anxiety] (ICD-10) Closed fracture of tibia ?S82.209A - Unspecified fracture of shaft of unspecified tibia, initial encounter for closed fracture (ICD-10) Surgical History History of back surgery ?Z98.890 - Other specified postprocedural states (ICD-10) Status post hysterectomy ?Z90.710 - Acquired absence of both cervix and uterus (ICD-10) Status post bilateral breast reduction ?Z98.890 - Other specified postprocedural states (ICD-10) History of reduction mammoplasty ?Z98.890 - Other specified postprocedural states (ICD-10) History of lumbar laminectomy ?Z98.890 - Other specified postprocedural states (ICD-10) History of hysterectomy ?Z90.710 - Acquired absence of both cervix and uterus (ICD-10) History of colonoscopy ?Z98.890 - Other specified postprocedural states (ICD-10) Family History Unknown Colon cancer Social History What is your current living situation?: I presently have a place to live Problems where you live: no known problems In the past 12 months, utilities in danger of being shut off: no In past 12 months, lack of transportation kept you from medical appts, meetings, work, or getting things needed for daily living: no In the past 12 mos, have been you worried that your food would run out before you had money to buy more?: never true In the past 12 mos, the food you bought just didn't last and you didn't have money to buy more?: never true Smoking Status: Never smoker Do you use any of these nicotine containing products: None Second hand tobacco smoke exposure: No How often do you have a drink containing alcohol: monthly or less How many standard drinks containing alcohol do you have on a typical day: 1 or 2 How often do you have six or more drinks on one occasion: Never AUDIT-C Alcohol total score: 1 Non-prescribed substance use: denies use How often does anyone, including family, friends and others, physically hurt you : never How often does anyone, including family, friends and others, insult or talk down to you: never How often does anyone, including family, friends and others, threaten you with harm: never How often does anyone, including family, friends and others, scream or curse at you: never service: No Exam Narrative: Exam Narrative: GEN: alert and oriented. well developed and well nourished. lying on the bed with the HOB flat and has the lights dimmed due to photophobia. looks uncomfortable and anxious due to pain. family supportive HENT: atraumatic. no racoon eyes, battles sign. no skull fx. TMs normal bilaterally. mastoids normal. face normal. no tenderness , erythema, swelling, nodularity, or rash on left jew or face. EYES: no exophthalmos, enophthamost. EOM normal and pain free. no nystagums. PERRL. visual gonzalez full to bedside confrontation. Neck: no posterior tenderness. she say the pain radiates into left antolateral neck but no tenderness, mass, swelling there. trachea midline CV: RRR. No MRG. symmetric radial pulses PULM: CTA. breathin easily Abd: nontender no massses MSK: normla ROM in neck. no tenderness or deformity. No edema NEURO: AOx3. speech fluent. memory normal. CN II-XII intact. strength 5/5 olivia in trap, deltoid, biceps, triceps, fisher reef net, thumb extension and opposition, finger abduction, hip flexors, quqds, hamstrings, gastroc, tibialis ant, toe wiggling. Sensation intact to light touch olivia in CN V, C5-T1, L3-S1. able to stand. Rhomber normal but gait is slow and unsteady. does not fall. Finger to nose normal. Psych: uncomfortable causes anxious affect. otherwise normal. Const: Vital Signs, click to edit/add: Vital Signs - 24 hr 02/13/25 20:31 02/13/25 21:55 02/13/25 22:00 Temperature 96.6 F L Pulse Rate 74 81 Pulse Rate [Pulse Oximeter] 99 Respiratory Rate 20 Blood Pressure [Ri ght Upper Arm] 127/82 Pulse Oximetry 99 93 94 Oxygen Delivery Me thod Room Air 02/13/25 22:15 02/13/25 22:30 02/13/25 22:52 Temperature Pulse Rate 78 83 84 Pulse Rate [Pulse Oximeter] Respiratory Rate Blood Pressure [Ri ght Upper Arm] Pulse Oximetry 90 91 91 Oxygen Delivery Me thod 02/13/25 23:00 02/13/25 23:15 Temperature Pulse Rate 83 83 Pulse Rate [Pulse Oximeter] Respiratory Rate Blood Pressure [Ri ght Upper Arm] Pulse Oximetry 90 95 Oxygen Delivery Me thod Course Vital Signs Vital signs: Initial Vital Signs Temperature 96.6 F L 02/13/25 20:31 Temperature Source Temporal Artery Scan 02/13/25 20:31 Pulse Rate 99 02/13/25 20:31 Respiratory Rate 20 02/13/25 20:31 Blood Pressure 127/82 02/13/25 20:31 Blood Pressure Mean 97 02/13/25 20:31 Blood Pressure Position Sitting 02/13/25 20:31 Pulse Oximetry 99 02/13/25 20:31 Oxygen Delivery Method Room Air 02/13/25 20:31 Vital Signs Temperature 96.6 F L 02/13/25 20:31 Pulse Rate 99 02/13/25 20:31 Respiratory Rate 20 02/13/25 20:31 Blood Pressure 127/82 02/13/25 20:31 Pulse Oximetry 99 02/13/25 20:31 Oxygen Delivery Method Room Air 02/13/25 20:31 Temperature 96.6 F L 02/13/25 20:31 Pulse Rate 83 02/13/25 23:15 Respiratory Rate 20 02/13/25 20:31 Blood Pressure 127/82 02/13/25 20:31 Pulse Oximetry 95 02/13/25 23:15 Oxygen Delivery Method Room Air 02/13/25 20:31 Medications Administered Medications: Discontinued Medications Generic Name Dose Route Start Last Admin Trade Name Freq PRN Reason Stop Dose Admin Diphenhydramine HCl 12.5 mg 02/13/25 21:29 02/13/25 22:12 Diphenhydramine 50 Mg/Ml Inj IVP 02/13/25 21:30 12.5 mg ONCE ONE Administration Sodium Chloride 1,000 mls @ 1,000 mls/hr 02/13/25 21:30 02/13/25 23:05 0.9 % Sodium Chloride 1000 Ml IV 02/13/25 22:29 Infused .Q1H SCAR Infusion Ketorolac Tromethamine 15 mg 02/13/25 21:29 02/13/25 22:14 Ketorolac 15 Mg/Ml Inj IVP 02/13/25 21:30 15 mg ONCE ONE Administration Methylprednisolone Sodium Succinate 125 mg 02/13/25 21:29 02/13/25 22:20 Methylprednisolone Sod Succ 62.5 Mg/Ml (125) IVP 02/13/25 21:30 125 mg ONCE ONE Administration Metoclopramide HCl 10 mg 02/13/25 21:29 02/13/25 22:16 Metoclopramide Hcl 5 Mg/Ml Inj IVP 02/13/25 21:30 10 mg ONCE ONE Administration Medical Decision Making MDM Narrative Medical decision making narrative: 74 yo F with h/o migraines, but no h/o autoimmune disease and no h/o coagulopathy presenting to ER for eval of progressively worsening left frontal/temporal/retroorbital headache. No trauma. Headache started a couple of weeks ago. It sounds like the headache was initially intermittent, but for the past week or so has worsening and has been continuous mild with intermittent flairs of more severe pain. Had been diagnosed with TN and started on meds ,but is not responding. Given history, suspect other diagnoses. Pt had stat non-con head CT ordered by nursing protocol at triage. CT is normal. No ICH, cerebral edema, visible mass, or other abnormalities. Given progressive COOPER, unsteadiness, age, I felt MRI was indicated to look for a mass (in case there was something compressing CN V) stroke, or other abnormaliy. MR ordered, however, pt has a bladder stimulator so MRI not possible tonight. CTA is obtained to look for aneurysm, left carotid dissection, or other abnormality. vasulature on CTA is normal. however, non-specific indirect signs of elevated ICP are noted. Pt received migraine cocktail with marked tremendous improvement. Headache resolved. Dizziness resolved. vision normal. Discussed signs of ICP with the patient and her family. Given marked improvement, using shared decision making we decided to hold of on LP for pressure measurement. Pt did not have abrupt onset of headache to raise high concern for SAH, and with no aneurysm noted on CTA, likelyhood of occult SAH is low. No fever or neck stiffness to raise concern for menningitis. Labs do show elevated ESR, which raises concern for temporal arteritis. has had some intermittent blurry left eye vision, but vision is normal here in ER and headache resolved. At this point I don't think she needs admission fo high dose steroids. But received solumedrol 125mg here in ER. She already has a n rx for prednisone prescribed by PCP (10mg per day). I recommend temporary increase to 60mg Po daily until biopsy is accolished and TA is ruled out. I contacted general surgery tonight to arrange expedition TA biopsy. Surgery will contact her tomorrow to arrange that. Discussed potential threat to vision and ER return precautions. If she has worsening headache, or visual symptoms she should return to ER right away. If worsening headache would strongly consider LP for ICP measurement and/or other work up for Temoral Arteritis. consider MR if able to take the appropriate steps with her bladder stimulator. Lab Data Labs: Lab Results 02/13/25 02/13/25 Range/Units 21:40 Unknown WBC 8.36 (4.50-11.00) K/uL RBC 5.26 H (4.00-5.20) m/uL Hgb 15.6 (12.0-16.0) gm/dL Hct 45.9 (33.0-51.0) % MCV 87 (80-100) fL MCH 30 (26-34) pg MCHC 34 (32-36) gm/dL RDW Coeff of Dmitriy 11.2 L (11.5-15.5) % Plt Count 442 H (140-440) K/uL Neut % (Auto) 80.0 H (42.0-72.0) % Lymph % (Auto) 11.6 L (20-44) % [place] % (Auto) 6.0 (0.0-11.0) % Eos % (Auto) 0.7 (0.0-7.0) % Baso % (Auto) 0.5 (0.0-3.0) % Neut # (Auto) 6.70 (1.7-7.0) K/uL Lymph # (Auto) 1.00 (0.90-2.90) K/uL [place] # (Auto) 0.50 (0.00-0.90) K/UL Eos # (Auto) 0.06 (0.00-0.50) K/uL Baso # (Auto) 0.04 (0.00-0.30) K/uL Abs Immat Gran (auto) 0.10 (0.00-0.30) K/uL Imm/Tot Granulo (auto) 1.2 % ESR 65 H (2-20) mm/hr Carboxyhemoglobin 2.1 (0.0-5.0) % Sodium 138 (135-149) mmol/L Potassium 3.6 (3.6-5.1) mmol/L Chloride 102 (96-114) mmol/L Carbon Dioxide 24 (20-32) mmol/L Anion Gap 12 (7-15) mEq/L BUN 18 (7-30) mg/dL Creatinine 0.7 (0.5-1.5) mg/dL Estimated Creat Clear 40.22 Estimated GFR 92 ml/min Glucose 131 H (60-115) mg/dL Calcium 10.3 (8.4-10.6) mg/dL Urine Color Yellow (Yellow) Urine Appearance Clear (Clear) Urine pH 7.0 (5.0-8.5) Ur Specific [place] 1.020 (1.000-1.030) Urine Protein Negative (Negative) Urine Glucose (UA) Negative (Negative) Urine Ketones 1+ A (Negative) Urine Blood Negative (Negative) Urine Nitrite Negative (Negative) Urine Bilirubin Negative (Negative) Urine Urobilinogen 1.0 (0.2-1.0) Ur Leukocyte Esterase 1+ A (Negative) Urine RBC 0-2 (0-2) Urine WBC 2-5 (0-5) Ur Squamous Epith Cells None (None-Few) Urine Bacteria Few A (None) Imaging Data CT scan - head: Attestation: I have reviewed the pertinent imaging results. Radiologist's impression: Impression: No acute abnormality appreciated. CTA head and neck: Attestation: I have reviewed the pertinent imaging results. Radiologist's impression: Impression: CTA head: No acute abnormality appreciated. Partially empty and expanded sella and narrowing of the transverse and sigmoid sinuses noted, nonspecific but can be seen with intracranial hypertension. CTA neck: No acute abnormality appreciated. Discharge Plan Discharge Clinical Impression: Headache Patient Disposition: Home, Self-Care Condition: Stable Instructions: Acute Headache (DC) Additional Instructions: As we discussed, I am very glad that your headache is feeling better. At this time, we do not have a definitive diagnosis for your headache. However, I do not think that your headache is being caused by trigeminal neuralgia. Stop taking carbamazepine for now I have concerned that your headache potentially might be caused by a condition called temporal arteritis. It is very important for you to have further workup for this condition. You should receive a phone call from the [facility] tomorrow morning to set up an appointment to arrange a biopsy of your temporal artery. If you do not receive a phone call from the clinic by lunch time tomorrow, call the clinical rehabilitation aide at [phone]. Temporal arteritis is caused by your immune system attacking the wall of your artery. Please continue taking prednisone. However it is important to increase your dose. Take prednisone 60 mg per day until you complete the workup for temporal arteritis. If your biopsy is good, your doctors will tell you when it is safe to stop the prednisone. It is okay to take your other medications as needed. Monitor your headache carefully. If you have recurring severe headache, blurry vision, loss of vision, trouble walking, vomiting, fever, or any other concerns, return to the emergency department right away. Prescriptions: No Action diltiazem HCl 180 mg capsule,extended release 24hr 180 mg PO DAILY gabapentin 100 mg capsule 100 - 200 mg PO QHS meclizine 25 mg tablet 25 mg PO QAM PRN (Reason: dizziness) cholecalciferol (vitamin D3) 10 mcg (400 unit) capsule 10 mcg PO QDAY Restasis MultiDose 0.05 % drops 1 drp ophthalmic (eye) BID omega 6-jrf-vli-fish oil [Fish Oil] 60-90-500 mg capsule 1 cap PO QDAY carbamazepine 100 mg tablet extended release 12 hr 100 mg PO BID Qty: 60 5RF tramadol 50 mg tablet 50 - 100 mg PO Q6H PRN (Reason: pain) Qty: 60 1RF rizatriptan 5 mg tablet 5 mg PO .As Needed as needed PRN (Reason: migraine headache) Qty: 9 3RF cyanocobalamin (vitamin B-12) 1,000 mcg tablet extended release 1,000 mcg PO DAILY hydrochlorothiazide 25 mg tablet 12.5 mg PO DAILY metoprolol succinate 25 mg tablet extended release 24 hr See Rx Instructions .ROUTE .COMPLEX Qty: 45 3RF Dose Instruction: TAKE 1/2 TABLET BY MOUTH DAILY Rx Instructions: TAKE 1/2 TABLET BY MOUTH DAILY cholestyramine (with sugar) 4 gram powder 2 g PO DAILY Qty: 378 6RF celecoxib 200 mg capsule See Rx Instructions .ROUTE .COMPLEX Qty: 90 2RF Dose Instruction: TAKE 1 CAPSULE BY MOUTH DAILY Rx Instructions: TAKE 1 CAPSULE BY MOUTH DAILY omeprazole 20 mg capsule,delayed release(DR/EC) 20 mg PO QDAY Qty: 90 1RF venlafaxine 150 mg capsule,extended release 24hr 150 mg PO QDAY Qty: 90 3RF prednisone 10 mg tablet 20 mg PO QDAY Qty: 50 0RF Follow Up/Referrals: Raleigh Moya MD [Primary Care Provider] - Stand Alone Forms: [employer] Info Instructions
--- OUTSIDE RECORDS SUMMARY | 2025-02-13 21:48 | XMS_ITS | Clinical Summary ---
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 Not on file Not [...] Comments Blood Pressure 123/72 10/02/2015 8:34 AM FIRE PROTECTION EQUIPMENT TECHNICIAN Pulse 81 10/02/2015 8:34 AM FIRE PROTECTION EQUIPMENT TECHNICIAN Temperature 36.8 C (98.2 F) 08/22/2015 8:11 AM FIRE PROTECTION EQUIPMENT TECHNICIAN Respiratory Rate - - Oxygen Saturation 95% 10/02/2015 8:34 AM FIRE PROTECTION EQUIPMENT TECHNICIAN Inhaled Oxygen Concentration - - Weight 82.6 kg (182 lb 3.2 oz) 10/02/2015 8:34 A M FIRE PROTECTION EQUIPMENT TECHNICIAN Height 165 cm (5' 4.96) 10/02/2015 8:34 AM FIRE PROTECTION EQUIPMENT TECHNICIAN Body Mass Index 30.36 10/02/2015 8:34 AM FIRE PROTECTION EQUIPMENT TECHNICIAN Plan of Treatment Health Maintenance Due Date [...] cancer ANTI HCV Routine 08/22/2015 9:13 AM FIRE PROTECTION EQUIPMENT TECHNICIAN Need for hepatitis C screening test LIPID PANEL W REFLEX MEASURED LDL Routine 08/22/2015 9:13 AM FIRE PROTECTION EQUIPMENT TECHNICIAN Screening, lipid XR DXA BONE DENSITY 2 SITES AXIAL Routine 09/17/2014 1:59 PM FIRE PROTECTION EQUIPMENT TECHNICIAN Screening for osteoporosis XR MAMMO BILAT SCREEN FFDM (IA) Routine 08/20/2014 4:19 PM FIRE PROTECTION EQUIPMENT TECHNICIAN Other screening mammogram from Last 3 Months or Most Recently Relevant to Health Maintenance Results * OCCULT BLOOD IFOBT STOOL (05/07/2016 3:30 PM CDT) STOOL BLOOD ,IFOBT Negative Negative 05/07/2016 4:10 PM CDT [facility] Stool STOOL SPECIMEN / Unknown Non-Blood / Unknown 05/07/2016 3:30 PM CDT 05/07/2016 3:30 PM CDT Juanita Back [facility] F inal Result [facility] [address] [place] [address], [place] [phone] * (ABNORMAL) LIPID PANEL W REFLEX MEASURED LDL (08/22/2015 9:13 AM FIRE PROTECTION EQUIPMENT TECHNICIAN) CHOLESTEROL,TOTAL 230(H) 100 - 199 mg/dL 08/22/2015 9:39 AM FIRE PROTECTION EQUIPMENT TECHNICIAN [facility] TRIGLYCERIDES 260(H) <150 mg/dL 08/22/2015 9:39 AM FIRE PROTECTION EQUIPMENT TECHNICIAN [facility] HDL CHOLESTEROL 46 >40 mg/dL 08/22/2015 9:39 AM FIRE PROTECTION EQUIPMENT TECHNICIAN [facility] NON-HDL CHOLESTEROL 184(H) <145 mg/dl 08/22/2015 9:39 AM FIRE PROTECTION EQUIPMENT TECHNICIAN [facility] CHOL/HDL RATIO 5.00(H) <4.50 08/22/2015 9:39 AM FIRE PROTECTION EQUIPMENT TECHNICIAN [facility] LDL CHOLESTEROL 132(H) <=130 mg/dL 08/22/2015 9:39 AM FIRE PROTECTION EQUIPMENT TECHNICIAN [facility] PATIENT STATUS FASTING 08/22/2015 9:39 AM FIRE PROTECTION EQUIPMENT TECHNICIAN [facility] Blood specimen (specimen) BLOOD SPECIMEN / Unknown Venipuncture / Unknown 08/22/2015 9:13 AM FIRE PROTECTION EQUIPMENT TECHNICIAN 08/22/2015 9:13 AM FIRE PROTECTION EQUIPMENT TECHNICIAN us Juanita Back NP CHEMISTRY F inal Result [facility] [address] [place] [address], [place] [phone] * ANTI HCV (08/22/2015 9:13 AM FIRE PROTECTION EQUIPMENT TECHNICIAN) HEPATITIS C ANTIBODY Non-Reacti ve Non-Reacti ve 08/22/2015 5:47 PM FIRE PROTECTION EQUIPMENT TECHNICIAN [facility] Blood specimen (specimen) BLOOD SPECIMEN / Unknown Venipuncture / Unknown 08/22/2015 9:13 AM FIRE PROTECTION EQUIPMENT TECHNICIAN 08/22/2015 9:13 AM FIRE PROTECTION EQUIPMENT TECHNICIAN Narrative [facility] - 08/22/2015 5:47 PM FIRE PROTECTION EQUIPMENT TECHNICIAN Antibodies to HCV not detected; does not exclude the possibility of exposure to HCV. Juanita Back NP SEND OUTS F inal Result [facility] [address] [place] [address], [place] * (ABNORMAL) XR DXA BONE DENSITY 2 SITES (09/17/2014 1:59 PM FIRE PROTECTION EQUIPMENT TECHNICIAN) Anatomical Region Laterality Modality Spine, HIPS, HIPL, HIPR Other Narrative 09/25/2014 10:57 AM FIRE PROTECTION EQUIPMENT TECHNICIAN Please see scanned document for results of this study. Procedure Note Angelia Hurtado PA - 09/25/2014 Please see scanned document for results of this study. us Juanita ortega Result * XR MAMMO BILAT SCREEN FFDM (08/20/2014 4:19 PM FIRE PROTECTION EQUIPMENT TECHNICIAN) Anatomical Region Laterality Modality BREASTS, Breast Left, Breast Right Bilateral Mammography Impressions 08/27/2014 12:37 PM FIRE PROTECTION EQUIPMENT TECHNICIAN There is no radiographic evidence for malignancy. Recommend annual mammograms. A lay language report of this examination will be provided to the patient. MAMMOGRAM ASSESSMENT: ACR 2 Benign Narrative 08/27/2014 12:37 PM FIRE PROTECTION EQUIPMENT TECHNICIAN XR MAMMO BILAT SCREEN FFDM [G0202.0] CLINICAL HISTORY: This is an asymptomatic 64 y.o. patient. INDICATION FOR EXAM: Mammogram Screening. TECHNIQUE: CC & MLO views were obtained. This digital study was evaluated with the assistance of Computer-Aided Detection. COMPARISON FILMS: Yes 05/14/13 [facility] 02/16/13 [facility] FINDINGS: Mammographically, the breast tissue has scattered [...] of Computer-Aided Detection. COMPARISON FILMS: Yes 05/14/13 [facility] 02/16/13 [facility] FINDINGS: Mammographically, the breast tissue has scatteredfibroglandular densities. No suspicious masses or microcalcifications.Benign appearing calcifications within both breasts, Benign appearingasymmetry within left breast and Intramammary lymph node within leftbreast. IMPRESSION: There is no radiographic evidence for malignancy. Recommendannual mammograms. A lay language report of this examination will be provided to the patient. MAMMOGRAM ASSESSMENT: ACR 2 Benign Juanita ChaudharyWhitneycarlos Back [facility] F inal Result from Last 3 Months or Most Recently Relevant to Health Maintenance Insurance [employer] [place] HB ONLY [employer] MR PB ONLY [employer] HB ONLY * Guarantor: VAMSHI VILLEGAS Account Type Relation to Patient Date of Phone Billing Address Personal/Family 1948 [address], [place] [address] Care Teams Branch Service Associate Relationship Specialty Start Date End Date Annemarie Locke MD PCP - General Family Practice 10/27/16
--- OUTSIDE RECORDS SUMMARY | 2025-02-13 21:48 | XMS_ITS | Clinical Summary ---
Author Organization [facility] Address [address] [place] [address] Care Team Providers Care Analytics Analyst Name Role Phone Anjum Moya MD Primary Care Provider [phone] Allergies Active Allergy Reactions Criticality Noted Date [...] CDT Respiratory Rate 16 11/06/2020 7:35 AM ELECTRICAL DESIGN ENGINEER Oxygen Saturation 98% 06/19/2022 2:14 PM CDT Inhaled Oxygen Concentration - - Weight 81.6 kg (180 lb) 06/19/2022 2:14 PM CDT Height 162.6 cm (5' 4) 11/04/2020 6:14 AM ELECTRICAL DESIGN ENGINEER Body Mass Index 30.9 11/04/2020 6:14 AM ELECTRICAL DESIGN ENGINEER Plan of Treatment Health Maintenance Due Date [...] this topic Medical Devices Implanted Type Area Nutrition Educator Device Identifier Shelf Expiration Date Model / Serial / Lot Graft Bone Putty Dbx 10ml [id number] Implanted:Qty : 1 on 11/04/2020 by Isai Colon MD at [facility] Bone/Tis noemí/Biol ogic N/A: Spine Lumbar [employer] 04/14/2022 [id number] / 6.5 X 45mm Screw Implanted:Qty : 4 on 11/04/2020 by Isai Colon MD at [facility] N/A: Spine Lumbar DAKSHA [id number] / / 07 2020 Closure Tops Implanted:Qty : 4 on 11/04/2020 by Isai Colon MD at [facility] N/A: Spine Lumbar DAKSHA [id number]. 001 / 07 2020 40mm Rods Implanted:Qty : 2 on 11/04/2020 by Isai Colon MD at [facility] N/A: Spine Lumbar DAKSHA [id number]. 005 / / 07 2020 Procedures Procedure Name Priority Date/Time Associated Diagnosis Comments GLUCOSE Routine 11/06/2020 7:00 AM ELECTRICAL DESIGN ENGINEER from Last 3 Months or Most Recently Relevant to Health Maintenance Results * Glucose (11/06/2020 7:00 AM ELECTRICAL DESIGN ENGINEER) Glucose 95 70 - 99 mg/dL 11/06/2020 7:25 AM ELECTRICAL DESIGN ENGINEER [facility] Blood specimen (specimen) 11/06/2020 7:00 AM ELECTRICAL DESIGN ENGINEER 11/06/2020 7:01 AM ELECTRICAL DESIGN ENGINEER us Isai Colon MD LAB - BLOOD ORDERABLES Final R esult [facility] [address] [place] [id number], [facility] [phone] from Last 3 Months or Most Recently Relevant to Health Maintenance Insurance [facility] [employer] BLUE Advance Directives For more information, please contact: [phone] * Full Code (Latest Code Status on File) Date Activated Date Inactivated Comments 11/04/2020 1:35 PM 11/06/2020 4:41 PM All basic and advanced life-sustaining interventions are performed as appropriate Question Answer Comments Code status determined by: Discussion with patie nt/ legal decision maker Care Teams Analytics Analyst Relationship Specialty Start Date End Date Anjum Moya MD PCP - General Family Medicine 10/21/20
[2025-02-13 21:49] LABS: Appearance Urine Clear (Clear); Bilirubin Urine Negative (Negative); Blood Urine Negative (Negative); Color Urine Yellow (Yellow); Glucose Urine Negative (Negative); Ketones Urine 1+ (Negative); Leukocyte Esterase Urine 1+ (Negative); Nitrite Urine Negative (Negative); Protein Urine Negative (Negative)
[2025-02-13 21:51] LABS: Carboxyhemoglobin* 2.1 % (0.0-5.0)
[2025-02-13 21:54] LABS: Bacteria Urine Few; RBC Urine 0-2 (0-2)
[2025-02-13 21:59] LABS: Basophils Absolute Auto 0.04 K/uL (0.00-0.30); Basophils Percent Auto 0.5 % (0.0-3.0); Eosinophils Absolute Auto 0.06 K/uL (0.00-0.50); Eosinophils Percent Auto 0.7 % (0.0-7.0); Hematocrit 45.9 % (33.0-51.0); Hemoglobin* 15.6 gm/dL (12.0-16.0); Immature Granulocytes Pct Auto 1.2 %; Lymphocytes Percent Auto 11.6 % (20-44); Mean Corpuscular HGB Conc 34 gm/dL (32-36); Mean Corpuscular Hemoglobin 30 pg (26-34); Mean Corpuscular Volume 87 fL (80-100); Platelet Count* 442 K/uL (140-440); RDW Coefficient of Variation % 11.2 % (11.5-15.5); Red Blood Count 5.26 m/uL (4.00-5.20); White Blood Count* 8.36 K/uL (4.50-11.00)
--- NOTE | 2025-02-13 22:03 | CRLHL7_ITS ---
For Patients: As a result of the Century Cures Act, medical imaging exams and procedure reports are released immediately into your electronic medical record. You may view this report before your referring provider. If you have questions, please contact your health care provider. DATE: 02/13/2025 CLINICAL HISTORY: Patient with headache. TECHNIQUE: Standard helical CT image acquisition through the intracranial circulation following intravenous administration of contrast material with bolus tracking. 2D and 3D MIP images for post-processing were performed and interpreted on an independent workstation and 3D images were permanently archived. COMPARISON: CT same day. FINDINGS: There is no cerebral aneurysm or large vessel occlusion. The right internal carotid artery is normal. The right middle cerebral artery and its branches are normal. The right anterior cerebral artery and its branches are normal. The left internal carotid artery is normal. The left middle cerebral artery and its branches are normal. The left anterior cerebral artery and its branches are normal. The anterior communicating artery is well visualized and appears normal. The right vertebral artery and PICA are normal. The left vertebral artery and PICA are normal. The left vertebral artery is dominant. The basilar artery is patent and appears normal. The right posterior cerebral artery is normal. The left posterior cerebral artery is normal. The visualized venous structures are patent. IMPRESSION: Patent proximal intracranial vasculature without intracranial aneurysms. Please note that all CT scans at this facility use dose modulation, iterative reconstruction, and/or weight-based dosing when appropriate to reduce radiation dose to as low as reasonably achievable. Dictated by Steph Gibbons MD @ 02/14/2025 10:59:58 AM (Electronically Signed)
--- NOTE | 2025-02-13 22:03 | CRLHL7_ITS ---
For Patients: As a result of the Century Cures Act, medical imaging exams and procedure reports are released immediately into your electronic medical record. You may view this report before your referring provider. If you have questions, please contact your health care provider. DATE: 02/13/2025 CLINICAL HISTORY: Patient with headache and neck pain. TECHNIQUE: Standard helical CT image acquisition of the neck up to the skull base after bolus intravenous contrast enhancement. 2D and 3D MIP images for post-processing were performed and interpreted on an independent workstation and 3D images were permanently archived. COMPARISON: CT same day. FINDINGS: The origins of the great vessels from the aortic arch are patent. The origin of the right vertebral artery is patent. The origin of the left vertebral artery is patent. The common carotid arteries are patent. There is no stenosis at the origin of the right internal carotid artery. There is no stenosis at the origin of the left internal carotid artery. The rest of the cervical segments of the internal carotid arteries are patent up to the skull base. The left vertebral artery is dominant. The cervical segments of the vertebral arteries are patent up to the skull base. The visualized lung apices are unremarkable. The thyroid gland is unremarkable. The soft tissues of the neck are unremarkable. There are degenerative changes in the cervical spine. IMPRESSION: Patent cervical vasculature. Please note that all CT scans at this facility use dose modulation, iterative reconstruction, and/or weight-based dosing when appropriate to reduce radiation dose to as low as reasonably achievable. Dictated by Steph Gibbons MD @ 02/14/2025 10:57:36 AM (Electronically Signed)
[2025-02-13 22:05] LABS: Chloride* 102 mmol/L (96-114); Potassium* 3.6 mmol/L (3.6-5.1); Sodium* 138 mmol/L (135-149)
[2025-02-13 22:07] LABS: Slide Review Reflex No
[2025-02-13 22:08] LABS: Anion Gap 12 mEq/L (7-15); Blood Urea Nitrogen* 18 mg/dL (7-30); Calcium* 10.3 mg/dL (8.4-10.6); Carbon Dioxide* 24 mmol/L (20-32); Creatinine* 0.7 mg/dL (0.5-1.5); Est. Creatinine Clearance* 40.22; Estimated Glomerular Filt Rate 92 ml/min; Glucose* 131 mg/dL (60-115)
[2025-02-13] MEDS: 0.9 % SODIUM CHLORIDE 1000 ml 1,000 ML IV (22:11)
[2025-02-13] MEDS: diphenhydrAMINE 50 MG/ML inj 12.5 MG IVP (22:12)
[2025-02-13] MEDS: KETOROLAC 15 MG/ML inj IVP (22:14)
[2025-02-13] MEDS: METOCLOPRAMIDE HCL 5 MG/ML INJ 10 MG IVP (22:16)
[2025-02-13] MEDS: METHYLPREDNISOLONE SOD SUCC 62.5 MG/ML (125) 125 MG IVP (22:20)
[2025-02-13 23:06] LABS: Erythrocyte SedimentationRate* 65 mm/hr (2-20)
== END 2025-02-14 00:19 | disposition home or self-care (01) ==
PROVIDERS: Emergency Provider Emergency Medicine; PCP Family Medicine
DX: R51.9 Headache, unspecified (principal)
CPT/HCPCS: 36415; 70450; 70496; 70498; 80048; 81001; 82375; 85025; 85651; 87086; 94761; 96374; 96375; 99284; 99285; J1200; J1885; J2765; J2919; J7030; Q9967

== ENCOUNTER 2025-03-05 09:15 | Outpatient (CLI) | payer MEDICARE, BC, SELFPAY ==
--- NOTE | 2025-03-05 11:14 | P.ANES_ITS ---
Anesthesia Charges Start Date/Time Anesthesia Start Date: 03/05/25 Anesthesia Start Time: 10:47 Stop Date/Time Anesthesia Stop Date: 03/05/25 Anesthesia Stop Time: 11:09 Summary Extremes of Age - Over 70 or under 1: WELDING ESTIMATOR Coding CPT Codes CPT Codes: ANECarrie LWR INTST SCR COLSC - 19925 ([id number]) P2 - PATIENT W/MILD SYST DISEASE, QK - SHELF FILLER 2-4 CNCRNT ANES PROC, QX - WELDING ESTIMATOR SVC W/ MD MED DIRECTION Additional Codes: Summary - Extremes of Age - Over 70 or under 1: WELDING ESTIMATOR ([id number])
--- NOTE | 2025-03-05 11:14 | W.ANESCHARGE ---
Anesthesia Charges Start Date/Time Anesthesia Start Date: 03/05/25 Anesthesia Start Time: 10:47 Stop Date/Time Anesthesia Stop Date: 03/05/25 Anesthesia Stop Time: 11:09 Summary Extremes of Age - Over 70 or under 1: ADMISSIONS GATE ATTENDANT Coding CPT Codes CPT Codes: ANECarrie LWR INTST SCR COLSC - 02811 ([id number]) P2 - PATIENT W/MILD SYST DISEASE, QK - SURGICAL SUPPLIES STERILIZER 2-4 CNCRNT ANES PROC, QX - ADMISSIONS GATE ATTENDANT SVC W/ MD MED DIRECTION Additional Codes: Summary - Extremes of Age - Over 70 or under 1: ADMISSIONS GATE ATTENDANT ([id number])
--- NOTE | 2025-03-05 11:22 | W.ANESCHARGE ---
Anesthesia Charges Start Date/Time Anesthesia Start Date: 03/05/25 Anesthesia Start Time: 10:47 Stop Date/Time Anesthesia Stop Date: 03/05/25 Anesthesia Stop Time: 11:09 Summary Extremes of Age - Over 70 or under 1: MDA Coding CPT Codes CPT Codes: ANES LWR INTST SCR COLSC - 71676 ([id number]) QK - ROAD ROLLER OPERATOR 2-4 CNCRNT ANES PROC, QX - STEAM STATION SUPERVISOR SVC W/ MD MED DIRECTION, P2 - PATIENT W/MILD SYST DISEASE Additional Codes: Summary - Extremes of Age - Over 70 or under 1: MDA ([id number])
== END 2025-03-05 09:16 | disposition home or self-care (01) ==
LOC: OP CLINIC 09:15
PROVIDERS: PCP Family Medicine; Visit Provider Surgery
DX: Z12.11 Encounter for screening for malignant neoplasm of colon (principal); Z80.0 Family history of malignant neoplasm of digestive organs; Z86.0109 Personal history of other colon polyps; K57.30 Diverticulosis of large intestine without perforation or abscess without bleeding
CPT/HCPCS: 00812; 45378; 99100; J2704

== ENCOUNTER 2025-06-10 09:57 | Outpatient (CLI) | payer MEDICARE, BC, SELFPAY | END 2025-06-10 09:58 | disposition home or self-care (01) | LOC: NFLDREF 06-13 16:46 | PROVIDERS: PCP Family Medicine; Referring Provider Family Medicine; Visit Provider Family Medicine | DX: R61 Generalized hyperhidrosis (principal); M31.6 Other giant cell arteritis | CPT/HCPCS: 84439; 84443 ==

== ENCOUNTER 2025-06-13 08:49 | Outpatient (CLI) | payer MEDICARE, BC, SELFPAY ==
--- NOTE | 2025-06-13 09:15 | CRLHL7_ITS ---
For Patients: As a result of the Century Cures Act, medical imaging exams and procedure reports are released immediately into your electronic medical record. You may view this report before your referring provider. If you have questions, please contact your health care provider. Indication: Headache. Technique: Multiplanar multisequence noncontrast MR images of the brain. Comparison: MRI brain 08/17/2022. Findings: Minimal diffuse cerebral volume loss. No mass effect or midline shift. Stable scattered FLAIR hyperintensities in the supratentorial white matter and gustavo, typical for mild chronic microvascular ischemic changes. 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 No intracranial hemorrhage or pathologic extra-axial fluid collection. No diffusion restriction to suggest acute infarction. The major arterial flow voids of the skull base are preserved. Thinning of the ocular lenses. Mild paranasal sinus mucosal thickening. Trace left mastoid fluid. Impression: 1. No acute intracranial abnormality. No significant change compared to the prior MRI. 2. Mild chronic microvascular ischemic changes. Dictated by Lázaro Lopez MD @ 06/13/2025 2:22:23 PM (Electronically Signed)
== END 2025-06-13 08:50 | disposition home or self-care (01) ==
LOC: MRI 08:49
PROVIDERS: PCP Family Medicine; Visit Provider Family Medicine
DX: R51.9 Headache, unspecified (principal); I67.82 Cerebral ischemia
CPT/HCPCS: 70551